=== PATIENT | female | born 1945 | race Caucasian/White ===

== ENCOUNTER → 2018-08-29 11:09 | Outpatient (CLI) | payer MEDICARE, SELFPAY ==
--- NOTE | 2018-08-29 11:14 | RAD_ITS ---
STUDY: X-RAY CHEST REASON FOR EXAM: Female, 72 years old. Cough TECHNIQUE: PA and lateral views of the chest. COMPARISON: None. FINDINGS: There is a patchy opacity in the right upper lobe and the superior aspect of the left lower lobe. There is no demonstrated pleural abnormality. Normal size heart. Normal mediastinum and tami. Normal visualized pulmonary arteries. There is atherosclerotic calcification of the aortic arch with tortuosity. There is a levoscoliosis of the thoracic spine. Normal visualized ribs, clavicles, and shoulders. There is no demonstrated abnormality of the visualized soft tissue structures of the upper abdomen. RAD/Chest PA and Lateral IMPRESSION: Findings are highly suspicious for bilateral pneumonia. N.B. : The above information has been verbally conveyed by Estrella Ordonez MD to Dr. Van MD, on 08/31/2018 17:06:40 (ET). Electronically Signed: Estrella Ordonez MD at 16:00 EST Tel , Service support ,
--- NOTE | 2018-08-29 11:15 | RAD_ITS ---
STUDY: X-RAY - UNILATERAL RIBS ( LEFT ) REASON FOR EXAM: Female, 72 years old. Left anterior rib pain TECHNIQUE: 4 view(s) of the ribs. COMPARISON: Chest x-ray performed concurrently, dictated separately FINDINGS: Normal visualized ribs without a demonstrated fracture. Lungs are described on chest x-ray report. RAD/Ribs Unil 2V No CXR IMPRESSION: 1. No rib fracture destructive bony process. Pulmonary findings described on chest x-ray report. Electronically Signed: Moisés Ballard MD at 13:09 EST , Service support ,
== END ==
PROVIDERS: Family Provider Nurse Practitioner; PCP Nurse Practitioner; Referring Provider Nurse Practitioner; Visit Provider Nurse Practitioner
DX: J06.9 Acute upper respiratory infection, unspecified (principal); R07.81 Pleurodynia
CPT/HCPCS: 71046; 71100

== ENCOUNTER → 2018-09-26 08:55 | Outpatient (CLI) | payer MEDICARE, SELFPAY ==
--- NOTE | 2018-09-26 08:58 | RAD_ITS ---
STUDY: X-RAY - RIGHT ANKLE REASON FOR EXAM: Female, 72 years old. Decreased mobility following intake of medication. TECHNIQUE: 3 view(s) of the ankle. COMPARISON: None. FINDINGS: Normal visualized distal tibia and fibula. Normal medial and lateral malleoli. Normal tibiotalar articulation and ankle mortise. Small spur at the insertion of the Achilles tendon. The visualized subtalar, talonavicular, calcaneocuboid and tarsal articulations are normal. The soft tissue structures are unremarkable. RAD/Ankle min 3 Views IMPRESSION: Normal x-ray examination of the ankle. Electronically Signed: Alfred Rocha MD at 9:26 EST , Service support ,
== END ==
PROVIDERS: Family Provider Nurse Practitioner; PCP Nurse Practitioner; Referring Provider Nurse Practitioner; Visit Provider Nurse Practitioner
DX: R29.898 Other symptoms and signs involving the musculoskeletal system (principal); R25.2 Cramp and spasm
CPT/HCPCS: 73610

== ENCOUNTER → 2018-09-26 10:01 | Outpatient (CLI) | payer MEDICARE, SELFPAY ==
--- NOTE | 2018-09-26 10:06 | VDLE_ITS ---
Reason For Study: LEG PAIN RIGHT LEFT GSV is normal. CFV is compressible, spontaneous, phasic, CFV is compressible, spontaneous, phasic, competent, and demonstrates normal competent and demonstrates normal augmentation. augmentation. FV is compressible, spontaneous, phasic, competent and demonstrates normal augmentation. POP V is compressible, spontaneous, phasic, competent and demonstrates normal augmentation. T/P Trunk is compressible. PTV is compressible. RT PerV is compressible. Procedure Exam performed in department. A preliminary report was called and/or faxed to Irasema Contreras. Interpretation Summary Deep veins of the right lower extremity are patent and compressible segmentally. There is no evidence of right lower extremity deep vein thrombosis. Valvular competence appears intact within the proximal deep venous system on the right . The right greater saphenous vein appears patent and compressible segmentally. Ordering Physician: Mile Contreras Referring Physician: Mile Contreras Performed By: Miguelina Krishnamurthy RVT
== END ==
PROVIDERS: Family Provider Nurse Practitioner; PCP Nurse Practitioner; Referring Provider Nurse Practitioner; Visit Provider Nurse Practitioner
DX: R29.898 Other symptoms and signs involving the musculoskeletal system (principal); R25.2 Cramp and spasm; M79.662 Pain in left lower leg; M79.661 Pain in right lower leg
CPT/HCPCS: 73610; 93971

== ENCOUNTER 2018-10-05 03:03 | Emergency (ER) | payer MEDICARE, SELFPAY ==
[2018-10-05 03:05] VITALS: BP 188/81; PULSE 83; RESP 18; TEMP 36.7; O2SAT 98; BMI 23.9
--- NOTE | 2018-10-05 03:11 | RAD_ITS ---
STUDY: X-RAY - LEFT FOOT CLINICAL: Female, 72 years old. Trauma TECHNIQUE: 3 view(s) of the foot. COMPARISON: None. FINDINGS: Normal talus, calcaneus, and tarsal bones. There is a posterior calcaneal spur. Normal visualized subtalar, talonavicular, calcaneocuboid, tarsal and tarsometatarsal articulations. Normal metatarsi. Normal metatarsophalangeal joint of the great toe. Normal tibial and fibular sesamoid bones. Normal interphalangeal joint of the great toe. Normal phalanges of the great toe. Normal second through fifth metatarsophalangeal joints. Normal interphalangeal joints and phalanges of the lesser toes. The soft tissue structures are unremarkable. RAD/Foot min 3 Views IMPRESSION: There is NO acute bony or soft tissue abnormality. Electronically Signed: Gee Marquez MD at 4:27 EST , Service support ,
--- NOTE | 2018-10-05 03:16 | ED.VISSUMM ---
- ER Visit Summary Date of Service: 10/05/18 Chief Complaint: Left foot pain History of Present Illness: The patient is a 72 F past medical history of diabetes, hypertension and high cholesterol. On no blood thinners. She accidentally injured the top of her left foot when she accidentally kicked wooden steps. No LOC. No other injuries. This occurred within the last several hours. No fall. Physical Examination: Well appearing elderly female. No acute distress. Vital signs are stable and afebrile. HEENT exam atraumatic. Neck nontender. Lungs clear to auscultation bilaterally. Heart regular rate and rhythm rate about 80. Chest wall nontender. Abdomen soft nontender. Normal bowel sounds. Pelvic girdle intact. Patient is moving all 4 extremities. Equal symmetrical service order expediter strength. Dorsi plantar flexion intact. No gross bony deformity. Top of her left foot over the metatarsal of the great toe she has tenderness and mild swelling. No gross bony deformity. Left foot is neurovascular intact with palpable DP pulse. She is able to wiggle all toes. Normal touch sensation. No laceration. Back normal. Neurologically she is awake and alert with no focal motor deficits. Test Results: Left foot x-ray 3 view shows no acute abnormalities. No fracture or dislocations. There is chronic degenerative changes. Emergency Department Course and Treatment: Repeat exam patient is doing well at 03 30 9 AM. We went over her x-rays. Treatment Plan: Ice and elevate. Tylenol and/or Motrin for pain. Follow-up if not improving. Disposition: Discharge Impression: Left foot contusion post trauma This note was generated with [employer] dictation software. It may contain incorrect words, spelling, and punctuation that were not noted in review of the chart prior to signing ED Disposition - Plan for ED Patient: Disposition: Home or Assisted Living Instructions: ED Contusion Foot Additional Instructions: Ice and elevate left foot. This should progressively get better. If in 1 week not not improving have your foot reevaluated. Your x-rays were negative tonight. No signs of a broken bone. Motrin and/or Tylenol for pain.
--- NOTE | 2018-10-05 03:20 | ED.DCSUM_ITS ---
- ER Visit Summary Date of Service: 10/05/18 Chief Complaint: Left foot pain History of Present Illness: The patient is a 72 F past medical history of diabetes, hypertension and high cholesterol. On no blood thinners. She accidentally injured the top of her left foot when she accidentally kicked wooden steps. No LOC. No other injuries. This occurred within the last several hours. No fall. Physical Examination: Well appearing elderly female. No acute distress. Vital signs are stable and afebrile. HEENT exam atraumatic. Neck nontender. Lungs clear to auscultation bilaterally. Heart regular rate and rhythm rate about 80. Chest wall nontender. Abdomen soft nontender. Normal bowel sounds. Pelvic girdle intact. Patient is moving all 4 extremities. Equal symmetrical final assembler boat strength. Dorsi plantar flexion intact. No gross bony deformity. Top of her left foot over the metatarsal of the great toe she has tenderness and mild swelling. No gross bony deformity. Left foot is neurovascular intact with palpable DP pulse. She is able to wiggle all toes. Normal touch sensation. No laceration. Back normal. Neurologically she is awake and alert with no focal motor deficits. Test Results: Left foot x-ray 3 view shows no acute abnormalities. No fracture or dislocations. There is chronic degenerative changes. Emergency Department Course and Treatment: Repeat exam patient is doing well at 03 30 9 AM. We went over her x-rays. Treatment Plan: Ice and elevate. Tylenol and/or Motrin for pain. Follow-up if not improving. Disposition: Discharge Impression: Left foot contusion post trauma This note was generated with [employer] dictation software. It may contain incorrect words, spelling, and punctuation that were not noted in review of the chart prior to signing ED Disposition - Plan for ED Patient: Disposition: Home or Assisted Living Instructions: ED Contusion Foot Additional Instructions: Ice and elevate left foot. This should progressively get better. If in 1 week not not improving have your foot reevaluated. Your x-rays were negative tonight. No signs of a broken bone. Motrin and/or Tylenol for pain.
--- NOTE | 2018-10-05 03:20 | ED.DEP ---
ED Disposition - Plan for ED Patient: Disposition: Home or Assisted Living Instructions: ED Contusion Foot Referrals: Luigi Davalos Chi, MD [Primary Care Provider] - As Needed Additional Instructions: Ice and elevate left foot. This should progressively get better. If in 1 week not not improving have your foot reevaluated. Your x-rays were negative tonight. No signs of a broken bone. Motrin and/or Tylenol for pain.
== END 2018-10-05 03:43 | disposition home or self-care (01) ==
PROVIDERS: Emergency Provider Emergency Medicine; Family Provider Family Medicine Geriatric Medicine; PCP Family Medicine Geriatric Medicine
DX: S90.32XA Contusion of left foot, initial encounter (principal); W22.8XXA Striking against or struck by other objects, initial encounter; Y93.9 Activity, unspecified; Y92.9 Unspecified place or not applicable; E11.9 Type 2 diabetes mellitus without complications; I10 Essential (primary) hypertension; E78.00 Pure hypercholesterolemia, unspecified; Z79.84 Long term (current) use of oral hypoglycemic drugs; Z79.899 Other long term (current) drug therapy
CPT/HCPCS: 73630; 99282

== ENCOUNTER 2018-10-20 15:30 | Outpatient (RCR) | payer MEDICARE, SELFPAY ==
--- NOTE | 2018-10-06 16:18 | HP.PTEVAL ---
Patient's Visit Information ROSARIO ALMODOVAR is a 72 year old F referred to Physical Therapy by Mile Contreras NP with a diagnosis of R foot drop. Date of Evaluation: 10/06/18 Physical Therapist: Rikki Vazquez, PT, ATC - Visit Plan Frequency: 1x/Week Duration: 2 Weeks Plan: Issue HEP of R ankle stretching, strengthening, balance and proprio. - Subjective Findings: Pt reports she had to take an antibiotic secondary to pneumonia 3 weeks ago. Pt reports both of her LE's went numb and she was unable to use them at all. Pt reports her motor function has improved in B LE's, but pt notes she has foot drop in R LE. This symptom is new since the meds. Pt reports she has difficulty with walking and negotiating stairs secondary to the weakness. Pt also notes she has to walk all day at work and notes her R LE just becomes weak the more she walks. No pain this date. No sleep difficulty secondary to R foot discomfort. - Objective Neuro: B LE sensation is WNL to light touch. B patellar tendon reflex= 2/3. ROM: L ankle DF= 0, PF= 55; R ankle DF= -32, PF= 45. MMT: R ankle DF= 1/5. All other B LE MMT= 5/5 throughout - Goals Goal 1:: I with HEP in 1-2 visits Goal Time Frame: 1 Week - Rehabilitation Potential Physical Therapy Diagnosis: R foot and ankle weakness secondary to an adverse reaction from taking and antibiotic Rehabilitation Potential: Good - Anticipated Interventions Patient/Client Instruction: Educate patient on: Condition, Plan of Care For the Purpose of:: To improve self management Therapeutic Exercise to Include: Strength training, Endurance training, Balance training, Flexibilty training, Gait and locomotor training, Active ROM For the Purpose of:: To increase ROM, To improve muscle performance and motor function Thank you for the opportunity to evaluate your patient. For Medicare and Medicare HMO plans, please review the plan of care and approve it. It will need to be FAXED BACK to us at [phone] for Medicare purposes. For Medicare only, by signing this I certify the plan of care. Please let me know if there are questions or concerns regarding this plan of care. Physician Signature: Date:
--- NOTE | 2019-03-19 12:01 | HP.PT.NRP ---
HP - Discharge Summary (1) - Patient Information ROSARIO ALMODOVAR was seen in my office for initial evaluation on 10/06/18. The following Plan of Care was established for this patient: Initial Frequency: 1x/Week Initial Duration: 2 Weeks - Anticipated Interventions Patient/Client Instruction: Educate patient on: Condition, Plan of Care For the Purpose of:: To improve self management Therapeutic Exercise to Include: Strength training, Endurance training, Balance training, Flexibilty training, Gait and locomotor training, Active ROM For the Purpose of:: To increase ROM, To improve muscle performance and motor function This patient was last seen in our office . Pertinent comments regarding their Physical therapy will appear below: Pt was treated for 1 followup PT visit for her R foot drop through the date of 10/20/18. Pt has not returned since that date, and is discontinued at this time. At this point I will be discontinuing this patient from physical therapy. I would be happy to see this patient again in the future if found appropriate by the physician. Thank you! Rikki Vazquez, PT, ATC
== END 2018-10-20 19:00 | disposition home or self-care (01) ==
LOC: PT 15:30
PROVIDERS: Family Provider Family Medicine Geriatric Medicine; PCP Family Medicine Geriatric Medicine; Referring Provider Nurse Practitioner; Visit Provider Nurse Practitioner
DX: M21.371 Foot drop, right foot (principal)
CPT/HCPCS: 97110; 97161

== ENCOUNTER → 2018-10-23 17:25 | Outpatient (CLI) | payer MEDICARE, SELFPAY ==
[2018-10-05 03:05] VITALS: BMI 23.9
[2018-10-23 18:06] LABS: Absolute Neutrophil Count 3.3 X10^3/uL (2.0-7.7); Basophil# 0.03 X10^3/uL; Basophil% 0.5 % (0-1); Eosinophil# 0.14 X10^3/uL; Eosinophils% 2.1 % (0-5); Hematocrit 38.4 % (37-47); Hemoglobin 12.8 g/dl (12.0-15.0); Lymphocyte % 42.1 % (19-41); Mean Corp Hgb Conc 33.3 g/gl (32-36); Mean Corpuscular Hgb 29.6 pg (27.0-32.0); Mean Corpuscular Volume 88.9 fL (81-99); Mean Platelet Vol. 10.1 fl (6.2-12.0); Monocyte# 0.37 X10^3/uL; Monocyte% 5.6 % (0-10); Neutrophil % 49.5 % (47-70); POSITIVE COUNT NO; POSITIVE DIFFERENTIAL NO; POSITIVE MORPHOLOGY NO; Platelet Count 270 K/mm3 (150-450); RBC Distribution Width CV 13.4 % (11.6-14.6); RBC Distribution Width SD 44.1 fl (35.1-43.9); Red Blood Count 4.32 M/mm3 (4.2-5.4); White Blood Count 6.7 K/mm3 (4.4-11.0)
[2018-10-23 18:37] LABS: ALB/GLOB Ratio 1.2 RATIO (0.9-2.4); AST(SGOT) 15 U/L (15-37); Alanine Aminotransfer ALT/SGPT 25 U/L (13-56); Albumin, Serum 3.7 g/dL (3.2-5.0); Alkaline Phosphatase 98 U/L (45-117); Anion Gap 10 (5-15); BUN 15 mg/dL (7-18); BUN/Creat Ratio 17.8 RATIO (10-20); Chloride 107 mmol/L (98-107); Cholesterol 233 mg/dL (200); Creatinine, Serum 0.84 mg/dL (0.55-1.02); EST Glomerular Filtration Rate 70 mL/min (>60); Est Glom Filt Rate - Afr Amer 85 mL/min (>60); Globulin 3.1 g/dL (2.2-4.2); Glucose 123 mg/dL (74-106); High Density Lipoprotein 75 mg/dL; Potassium 3.9 mmol/L (3.5-5.1); Protein, Total 6.8 g/dL (6.4-8.2); Sodium Level 143 mmol/L (136-145); Thyroid Stim Hormone (TSH) 3.92 uIU/mL (0.358-3.74); Triglycerides 189 mg/dL; Very Low Density Lipoprotein 38 mg/dL (5-40)
[2018-10-23 19:25] LABS: Vitamin D,25 Hydroxy 16.4 ng/mL (29.95-100.01)
== END ==
PROVIDERS: Family Provider Family Medicine Geriatric Medicine; PCP Family Medicine Geriatric Medicine; Referring Provider Family Medicine Geriatric Medicine; Visit Provider Family Medicine Geriatric Medicine
DX: E55.9 Vitamin D deficiency, unspecified (principal); E78.49 Other hyperlipidemia; R53.83 Other fatigue
CPT/HCPCS: 36415; 80053; 80061; 82306; 84443; 85025

== ENCOUNTER → 2019-02-09 | Outpatient (CLI) | payer MEDICARE, SELFPAY ==
[2019-02-09 17:32] LABS: Absolute Lymphocyte Count 1.75 X10^3/ul (0.83-4.51); Absolute Neutrophil Count 8.1 X10^3/uL (2.0-7.7); Basophil# 0.02 X10^3/uL; Basophil% 0.2 % (0-1); Eosinophil# 0.03 X10^3/uL; Eosinophils% 0.3 % (0-5); Hematocrit 39.7 % (37-47); Lymphocyte # 1.75 X10^3/ul (4.0); Lymphocyte % 16.8 % (19-41); Mean Corp Hgb Conc 32.7 g/gl (32-36); Mean Corpuscular Hgb 29.4 pg (27.0-32.0); Mean Corpuscular Volume 89.8 fL (81-99); Mean Platelet Vol. 10.9 fl (6.2-12.0); Monocyte# 0.44 X10^3/uL; Monocyte% 4.2 % (0-10); Neutrophil # 8.14 X10^3/uL (2.7-7.7); Neutrophil % 78.3 % (47-70); Platelet Count 334 K/mm3 (150-450); RBC Distribution Width CV 13.6 % (11.6-14.6); RBC Distribution Width SD 44.3 fl (35.1-43.9); Red Blood Count 4.42 M/mm3 (4.2-5.4); White Blood Count 10.4 K/mm3 (4.4-11.0)
[2019-02-09 17:35] LABS: POSITIVE COUNT NO; POSITIVE DIFFERENTIAL NO; POSITIVE MORPHOLOGY NO
[2019-02-09 17:53] LABS: ALB/GLOB Ratio 1.1 RATIO (0.9-2.4); AST(SGOT) 19 U/L (15-37); Alanine Aminotransfer ALT/SGPT 35 U/L (13-56); Albumin, Serum 3.7 g/dL (3.2-5.0); Alkaline Phosphatase 89 U/L (45-117); Anion Gap 10 (5-15); BUN 24 mg/dL (7-18); Chloride 105 mmol/L (98-107); EST Glomerular Filtration Rate 47 mL/min (>60); Est Glom Filt Rate - Afr Amer 56 mL/min (>60); Globulin 3.3 g/dL (2.2-4.2); Glucose 207 mg/dL (74-106); Potassium 3.8 mmol/L (3.5-5.1); Sodium Level 144 mmol/L (136-145); Thyroid Stim Hormone (TSH) 1.44 uIU/mL (0.358-3.74)
== END | disposition home or self-care (01) ==
PROVIDERS: Family Provider Family Medicine Geriatric Medicine; PCP Family Medicine Geriatric Medicine; Visit Provider Family Medicine Geriatric Medicine
DX: E11.65 Type 2 diabetes mellitus with hyperglycemia (principal); E55.9 Vitamin D deficiency, unspecified; I10 Essential (primary) hypertension
CPT/HCPCS: 36415; 80053; 82306; 84443; 85025

== ENCOUNTER → 2019-03-02 | Outpatient (CLI) | payer MEDICARE, SELFPAY ==
--- NOTE | 2019-03-02 17:16 | CT_ITS ---
STUDY: CT ABDOMEN AND PELVIS WITHOUT CONTRAST REASON FOR EXAM: Female, 73 years old. Right flank pain RADIATION DOSAGE (If Supplied By Facility): CTDIvol = ( 13.29 ) mGy, DLP = ( 628.86 ) mGycm TECHNIQUE: Transaxial images were obtained from the dome of the diaphragm to the symphysis pubis without oral contrast, and without intravenous contrast. Sagittal and coronal images were reconstructed. Individualized dose optimization techniques were used for this CT. COMPARISON: None. FINDINGS: The visualized lung bases are unremarkable. The visualized portions of the heart are within normal limits. Normal liver. There are likely multiple gallstones.. Normal spleen. Normal pancreas. Normal bilateral adrenal glands. Normal right kidney. Normal left kidney. No hydronephrosis or ureteral calculi. Normal visualized stomach. Normal small intestine. There is a moderate to large colonic fecal load. The appendix is not visualized. Normal abdominal aorta. Normal inferior vena cava. Normal retroperitoneum. Normal urinary bladder. Normal abdominal wall. Normal osseous structures. There is a small ventral periumbilical fatty hernia. There is calcification of the mitral annulus. There is likely a small hiatal hernia. CT/Abdomen/Pelvis without Cont IMPRESSION: Multiple likely gallstones, limited non-IV and nonoral contrast study, this should be correlated with clinical history and physical exam. If there is clinical concern for acute or chronic cholecystitis a right upper quadrant ultrasound would be recommended Moderate to large colonic fecal load likely fecal impaction Small ventral periumbilical fatty hernia No renal or ureteral calculi and no hydronephrosis Calcification of the mitral annulus Electronically Signed: Mitch Poe, at 18:21 EDT Tel , Service support ,
--- NOTE | 2019-03-02 17:17 | RAD_ITS ---
STUDY: X-RAY - THORACIC SPINE REASON FOR EXAM: Female, 73 years old. Back pain. TECHNIQUE: 3 view(s) of the thoracic spine were obtained. COMPARISON: None. FINDINGS: Normal kyphosis of the thoracic spine. There is no substantial scoliosis. Prominent anterior marginal spurs at T7-T8 and T9-T10 disc space levels. Normal vertebral bodies and endplates. Normal disc space heights. The soft tissue structures are unremarkable. RAD/Thoracic Spine 2 Views IMPRESSION: No acute fracture or acute osseous abnormality of the thoracic spine. Electronically Signed: Deondre Beckham MD at 8:59 EDT , Service support ,
--- NOTE | 2019-03-02 17:30 | RAD_ITS ---
STUDY: X-RAY - LUMBAR SPINE REASON FOR EXAM: Female, 73 years old. Back pain. TECHNIQUE: 3 view(s) of the lumbar spine were obtained. COMPARISON: None FINDINGS: Normal lumbar lordosis. There is no substantial scoliosis. There is a normal alignment of the vertebrae. Normal vertebral bodies and endplates. Normal disc space heights. Mild asymmetric degenerative facet arthropathy of the L3-L4 and L4-L5 facet joints. Partial sacralization of L5 accounts for the hypoplastic L5-S1 disc. Pseudoarticulation of the right L5 transverse process with the right upper sacral alar wing. Dense atherosclerotic calcifications along the abdominal aorta and the common iliac arteries. RAD/Lumbar Spine 2 or 3 Views IMPRESSION: 1. Partial sacralization of L5 with pseudoarthrosis of the right L5 transverse process with the right upper sacral alar wing. 2. No acute osseous abnormality of the lumbar spine. 3. Mild asymmetric degenerative facet arthropathy of the L3-L4 and L4-L5 facet joints. 4. Dense atherosclerotic calcifications along the abdominal aorta and common iliac arteries. Electronically Signed: Deondre Beckham MD at 9:03 EDT , Service support ,
== END | disposition home or self-care (01) ==
PROVIDERS: Family Provider Family Medicine Geriatric Medicine; PCP Family Medicine Geriatric Medicine; Referring Provider Family Medicine Geriatric Medicine; Visit Provider Family Medicine Geriatric Medicine
DX: M54.6 Pain in thoracic spine (principal); M54.16 Radiculopathy, lumbar region; R10.30 Lower abdominal pain, unspecified; N39.0 Urinary tract infection, site not specified
CPT/HCPCS: 72070; 72100; 74176; 87077; 87086; 87088; 87186

== ENCOUNTER → 2019-03-02 | Outpatient (CLI) | payer MEDICARE, SELFPAY | END | disposition home or self-care (01) | LOC: LABSPEC 17:13 | PROVIDERS: Family Provider Family Medicine Geriatric Medicine; PCP Family Medicine Geriatric Medicine; Visit Provider Family Medicine Geriatric Medicine | DX: N39.0 Urinary tract infection, site not specified (principal) | CPT/HCPCS: 87086 ==

== ENCOUNTER → 2019-03-04 | Outpatient (CLI) | payer MEDICARE, SELFPAY ==
--- NOTE | 2019-03-04 11:01 | US_ITS ---
STUDY: ABDOMINAL ULTRASOUND - RIGHT UPPER QUADRANT REASON FOR VISIT: Female, 73 [address] Pain. Abnormal [address] TECHNIQUE: Ultrasound evaluation of the right upper quadrant was performed with real-time and static degroot-scale imaging. TECHNICAL QUALITY: Adequate. COMPARISON: CT March 02, 2019 FINDINGS: Liver: The liver measures 16.7 cm. There is normal echogenicity of the liver. The bile ducts are within normal limits. There is hepatic color flow. The direction of portal flow is hepatopetal. There is no demonstrated mass lesion. Gallbladder: Normal distended gallbladder. The gallbladder wall measures 2 mm. There is a negative sonographic Levy's sign. There is no pericholecystic fluid. There are no shadowing gallstones. There is layering sludge. Common Bile Duct (C.B.D.): The common bile duct measures 4 mm. Pancreas: Normal size of the head, body and tail of the pancreas. There is normal echogenicity of the pancreas. There is no demonstrated pancreatic mass or cyst. Right Kidney: Normal size of the right kidney. The right kidney measures 10.4 cm. Normal renal cortex. The right cortex measures 1.5 cm. There is no demonstrated renal mass or cyst. There is no right hydronephrosis. US/Abdomen Limited IMPRESSION: No shadowing gallstones. Sludge in the gallbladder. No biliary dilatation. Electronically Signed: Joseph Graff MD at 19:31 EDT , Service support ,
== END | disposition home or self-care (01) ==
LOC: US 10:58
PROVIDERS: Family Provider Family Medicine Geriatric Medicine; PCP Family Medicine Geriatric Medicine; Referring Provider Family Medicine Geriatric Medicine; Visit Provider Family Medicine Geriatric Medicine
DX: R10.9 Unspecified abdominal pain (principal)
CPT/HCPCS: 76705

== ENCOUNTER → 2019-05-13 11:59 | Outpatient (CLI) | payer MEDICARE, SELFPAY ==
[2019-05-13 17:45] LABS: Absolute Lymphocyte Count 2.67 X10^3/uL (0.83-4.51); Absolute Neutrophil Count 5.1 X10^3/uL (2.0-7.7); Basophil# 0.05 X10^3/uL; Basophil% 0.6 % (0-1); Eosinophils% 2.3 % (0-5); Hematocrit 39.2 % (37-47); Hemoglobin 12.9 g/dL (12.0-15.0); Lymphocyte # 2.67 X10^3/ul (4.0); Lymphocyte % 31.2 % (19-41); Mean Corp Hgb Conc 32.9 g/dL (32-36); Mean Corpuscular Hgb 30.8 pg (27.0-32.0); Mean Corpuscular Volume 93.6 fL (81-99); Mean Platelet Vol. 10.6 fl (6.2-12.0); Monocyte% 5.8 % (0-10); NRBC Flagged by Analyzer 0 % (0-5); Neutrophil % 59.7 % (47-70); Platelet Count 306 K/mm3 (150-450); RBC Distribution Width CV 12.7 % (11.6-14.6); RBC Distribution Width SD 43.5 fl (35.1-43.9); Red Blood Count 4.19 M/mm3 (4.2-5.4); White Blood Count 8.6 K/mm3 (4.4-11.0)
[2019-05-13 18:08] LABS: Vitamin D,25 Hydroxy 31.5 ng/mL (29.95-100.01)
[2019-05-13 18:10] LABS: ALB/GLOB Ratio 1.3 RATIO (0.9-2.4); AST(SGOT) 22 U/L (15-37); Alanine Aminotransfer ALT/SGPT 29 U/L (13-56); Albumin, Serum 3.8 g/dL (3.2-5.0); Alkaline Phosphatase 83 U/L (45-117); Anion Gap 6 (5-15); BUN 21 mg/dL (7-18); BUN/Creat Ratio 22.2 RATIO (10-20); Chloride 108 mmol/L (98-107); Cholesterol 159 mg/dL (200); Creatinine, Serum 0.94 mg/dL (0.55-1.02); EST Glomerular Filtration Rate 61 mL/min (>60); Est Glom Filt Rate - Afr Amer 74 mL/min (>60); Glucose 99 mg/dL (74-106); High Density Lipoprotein 83 mg/dL; Potassium 3.7 mmol/L (3.5-5.1); Protein, Total 6.8 g/dL (6.4-8.2); Sodium Level 142 mmol/L (136-145); Thyroid Stim Hormone (TSH) 4.15 uIU/mL (0.358-3.74); Triglycerides 88 mg/dL; Very Low Density Lipoprotein 18 mg/dL (5-40)
== END ==
PROVIDERS: Family Provider Family Medicine Geriatric Medicine; PCP Family Medicine Geriatric Medicine; Visit Provider Family Medicine Geriatric Medicine
DX: E11.65 Type 2 diabetes mellitus with hyperglycemia (principal); E55.9 Vitamin D deficiency, unspecified; E78.5 Hyperlipidemia, unspecified; I10 Essential (primary) hypertension
CPT/HCPCS: 36415; 80053; 80061; 82306; 84443; 85025

== ENCOUNTER → 2019-07-01 11:39 | Outpatient (CLI) | payer MEDICARE, SELFPAY ==
[2019-07-01 14:08] LABS: Absolute Lymphocyte Count 1.47 X10^3/uL (0.83-4.51); Basophil# 0.06 X10^3/uL; Basophil% 0.8 % (0-1); Eosinophil# 0.17 X10^3/uL; Eosinophils% 2.4 % (0-5); Hematocrit 38.3 % (37-47); Hemoglobin 12.8 g/dL (12.0-15.0); Lymphocyte # 1.47 X10^3/ul (4.0); Lymphocyte % 20.7 % (19-41); Mean Corp Hgb Conc 33.4 g/dL (32-36); Mean Corpuscular Hgb 30.4 pg (27.0-32.0); Mean Platelet Vol. 10.9 fl (6.2-12.0); Monocyte# 0.39 X10^3/uL; Monocyte% 5.5 % (0-10); NRBC Flagged by Analyzer 0 % (0-5); Neutrophil # 4.99 X10^3/uL (2.7-7.7); Neutrophil % 70.5 % (47-70); Platelet Count 289 K/mm3 (150-450); RBC Distribution Width CV 13.2 % (11.6-14.6); Red Blood Count 4.21 M/mm3 (4.2-5.4); White Blood Count 7.1 K/mm3 (4.4-11.0)
[2019-07-01 14:26] LABS: ALB/GLOB Ratio 1.2 RATIO (0.9-2.4); AST(SGOT) 17 U/L (15-37); Alanine Aminotransfer ALT/SGPT 24 U/L (13-56); Albumin, Serum 3.8 g/dL (3.2-5.0); Alkaline Phosphatase 72 U/L (45-117); Anion Gap 10 (5-15); BUN 20 mg/dL (7-18); Calcium,Total 9.2 mg/dL (8.5-10.1); Chloride 108 mmol/L (98-107); Creatinine, Serum 0.91 mg/dL (0.55-1.02); EST Glomerular Filtration Rate 64 mL/min (>60); Est Glom Filt Rate - Afr Amer 77 mL/min (>60); Globulin 3.3 g/dL (2.2-4.2); Glucose 114 mg/dL (74-106); Protein, Total 7.1 g/dL (6.4-8.2); Rheumatoid Factor < 10.0 IU/mL (<15); Sodium Level 142 mmol/L (136-145)
[2019-07-02 11:40] LABS: Hepatitis B Surface Antibody Reactive; Hepatitis B Surface Antigen Non-Reactive (Nonreactive); Hepatitis C Antibody Non-Reactive (Nonreactive)
[2019-07-03 12:28] LABS: CCP IgG Antibodies 29 units (0-19); Hepatitis B Core AB IgM Negative (Negative)
== END ==
PROVIDERS: Family Provider Family Medicine Geriatric Medicine; PCP Family Medicine Geriatric Medicine; Referring Provider Internal Medicine Rheumatology; Visit Provider Internal Medicine Rheumatology
DX: M06.09 Rheumatoid arthritis without rheumatoid factor, multiple sites (principal); Z79.899 Other long term (current) drug therapy; M15.9 Polyosteoarthritis, unspecified; Q66.70 Congenital pes cavus, unspecified foot
CPT/HCPCS: 36415; 80053; 85025; 86200; 86431; 86705; 86706; 86803; 87340

== ENCOUNTER → 2019-08-11 16:12 | Outpatient (CLI) | payer MEDICARE, SELFPAY ==
[2019-08-11 17:19] LABS: Absolute Lymphocyte Count 1.39 X10^3/uL (0.83-4.51); Absolute Neutrophil Count 8.7 X10^3/uL (2.0-7.7); Basophil# 0.05 X10^3/uL; Basophil% 0.5 % (0-1); Eosinophil# 0.02 X10^3/uL; Eosinophils% 0.2 % (0-5); Hematocrit 39.9 % (37-47); Lymphocyte # 1.39 X10^3/ul (4.0); Lymphocyte % 13.3 % (19-41); Mean Corp Hgb Conc 32.6 g/dL (32-36); Mean Corpuscular Hgb 30.1 pg (27.0-32.0); Mean Corpuscular Volume 92.4 fL (81-99); Monocyte% 1.9 % (0-10); NRBC Flagged by Analyzer 0 % (0-5); Neutrophil # 8.73 X10^3/uL (2.7-7.7); Neutrophil % 83.7 % (47-70); Platelet Count 335 K/mm3 (150-450); RBC Distribution Width CV 13.2 % (11.6-14.6); RBC Distribution Width SD 44.9 fl (35.1-43.9); Red Blood Count 4.32 M/mm3 (4.2-5.4); White Blood Count 10.4 K/mm3 (4.4-11.0)
[2019-08-11 17:31] LABS: ALB/GLOB Ratio 1.2 RATIO (0.9-2.4); AST(SGOT) 18 U/L (15-37); Alanine Aminotransfer ALT/SGPT 23 U/L (13-56); Albumin, Serum 4.1 g/dL (3.2-5.0); Alkaline Phosphatase 89 U/L (45-117); Anion Gap 10 (5-15); BUN 19 mg/dL (7-18); BUN/Creat Ratio 17.1 RATIO (10-20); Calcium,Total 9.2 mg/dL (8.5-10.1); Chloride 107 mmol/L (98-107); Cholesterol 184 mg/dL (200); Creatinine, Serum 1.11 mg/dL (0.55-1.02); EST Glomerular Filtration Rate 51 mL/min (>60); Est Glom Filt Rate - Afr Amer 62 mL/min (>60); Globulin 3.3 g/dL (2.2-4.2); Glucose 147 mg/dL (74-106); High Density Lipoprotein 78 mg/dL; Protein, Total 7.4 g/dL (6.4-8.2); Sodium Level 141 mmol/L (136-145); Thyroid Stim Hormone (TSH) 1.98 uIU/mL (0.358-3.74); Triglycerides 146 mg/dL; Very Low Density Lipoprotein 29 mg/dL (5-40); Vitamin D,25 Hydroxy 28.7 ng/mL (29.95-100.01)
== END ==
PROVIDERS: Family Provider Family Medicine Geriatric Medicine; PCP Family Medicine Geriatric Medicine; Visit Provider Family Medicine Geriatric Medicine
DX: E11.65 Type 2 diabetes mellitus with hyperglycemia (principal); E55.9 Vitamin D deficiency, unspecified; E78.5 Hyperlipidemia, unspecified; I10 Essential (primary) hypertension
CPT/HCPCS: 36415; 80053; 80061; 82306; 84443; 85025

== ENCOUNTER → 2019-08-31 15:56 | Outpatient (CLI) | payer MEDICARE, SELFPAY ==
[2019-08-31 18:03] LABS: Absolute Neutrophil Count 6.2 X10^3/uL (2.0-7.7); Basophil# 0.03 X10^3/uL; Basophil% 0.3 % (0-1); Eosinophil# 0.14 X10^3/uL; Eosinophils% 1.6 % (0-5); Hemoglobin 11.9 g/dL (12.0-15.0); Lymphocyte % 21.3 % (19-41); Mean Corp Hgb Conc 33.1 g/dL (32-36); Mean Corpuscular Hgb 30.8 pg (27.0-32.0); Mean Corpuscular Volume 93.3 fL (81-99); Mean Platelet Vol. 10.7 fl (6.2-12.0); Monocyte# 0.63 X10^3/uL; NRBC Flagged by Analyzer 0 % (0-5); Neutrophil # 6.22 X10^3/uL (2.7-7.7); Neutrophil % 69.6 % (47-70); Platelet Count 293 K/mm3 (150-450); RBC Distribution Width CV 14.5 % (11.6-14.6); RBC Distribution Width SD 49.1 fl (35.1-43.9); Red Blood Count 3.86 M/mm3 (4.2-5.4); White Blood Count 8.9 K/mm3 (4.4-11.0)
[2019-08-31 18:06] LABS: ALB/GLOB Ratio 1.3 RATIO (0.9-2.4); AST(SGOT) 13 U/L (15-37); Alanine Aminotransfer ALT/SGPT 25 U/L (13-56); Albumin, Serum 3.9 g/dL (3.2-5.0); Alkaline Phosphatase 84 U/L (45-117); Anion Gap 7 (5-15); BUN 23 mg/dL (7-18); BUN/Creat Ratio 22.1 RATIO (10-20); Calcium,Total 9.5 mg/dL (8.5-10.1); Chloride 110 mmol/L (98-107); Creatinine, Serum 1.04 mg/dL (0.55-1.02); EST Glomerular Filtration Rate 55 mL/min (>60); Est Glom Filt Rate - Afr Amer 66 mL/min (>60); Globulin 3.1 g/dL (2.2-4.2); Glucose 65 mg/dL (74-106); Potassium 3.8 mmol/L (3.5-5.1); Sodium Level 144 mmol/L (136-145)
== END ==
PROVIDERS: Family Provider Family Medicine Geriatric Medicine; PCP Family Medicine Geriatric Medicine; Referring Provider Internal Medicine Rheumatology; Visit Provider Internal Medicine Rheumatology
DX: M06.09 Rheumatoid arthritis without rheumatoid factor, multiple sites (principal); Z79.899 Other long term (current) drug therapy; M15.9 Polyosteoarthritis, unspecified; Q66.70 Congenital pes cavus, unspecified foot; E11.9 Type 2 diabetes mellitus without complications; I10 Essential (primary) hypertension; E78.5 Hyperlipidemia, unspecified; I35.9 Nonrheumatic aortic valve disorder, unspecified; N39.46 Mixed incontinence; N30.10 Interstitial cystitis (chronic) without hematuria; F32.89 Other specified depressive episodes
CPT/HCPCS: 36415; 80053; 85025

== ENCOUNTER → 2019-10-26 16:25 | Outpatient (CLI) | payer MEDICARE, SELFPAY ==
[2019-10-26 17:42] LABS: Absolute Lymphocyte Count 1.18 X10^3/uL (0.83-4.51); Absolute Neutrophil Count 8.6 X10^3/uL (2.0-7.7); Basophil# 0.03 X10^3/uL; Basophil% 0.3 % (0-1); Eosinophil# 0.03 X10^3/uL; Eosinophils% 0.3 % (0-5); Hematocrit 36.1 % (37-47); Hemoglobin 11.6 g/dL (12.0-15.0); Lymphocyte # 1.18 X10^3/ul (4.0); Lymphocyte % 11.4 % (19-41); Mean Corp Hgb Conc 32.1 g/dL (32-36); Mean Corpuscular Hgb 30.4 pg (27.0-32.0); Mean Corpuscular Volume 94.8 fL (81-99); Mean Platelet Vol. 10.5 fl (6.2-12.0); Monocyte# 0.47 X10^3/uL; Monocyte% 4.6 % (0-10); NRBC Flagged by Analyzer 0 % (0-5); Neutrophil # 8.55 X10^3/uL (2.7-7.7); Neutrophil % 82.9 % (47-70); Platelet Count 339 K/mm3 (150-450); RBC Distribution Width CV 14.8 % (11.6-14.6); RBC Distribution Width SD 51.8 fl (35.1-43.9); Red Blood Count 3.81 M/mm3 (4.2-5.4); White Blood Count 10.3 K/mm3 (4.4-11.0)
[2019-10-26 18:16] LABS: ALB/GLOB Ratio 1.1 RATIO (0.9-2.4); AST(SGOT) 16 U/L (15-37); Alanine Aminotransfer ALT/SGPT 27 U/L (13-56); Albumin, Serum 3.6 g/dL (3.2-5.0); Alkaline Phosphatase 75 U/L (45-117); Anion Gap 6 (5-15); BUN 20 mg/dL (7-18); BUN/Creat Ratio 21.3 RATIO (10-20); CPK Total, Creatine Kinase 162 U/L (26-192); Calcium,Total 9.4 mg/dL (8.5-10.1); Chloride 108 mmol/L (98-107); Creatinine, Serum 0.94 mg/dL (0.55-1.02); EST Glomerular Filtration Rate 62 mL/min (>60); Est Glom Filt Rate - Afr Amer 75 mL/min (>60); Globulin 3.3 g/dL (2.2-4.2); Glucose 73 mg/dL (74-106); Potassium 3.6 mmol/L (3.5-5.1); Protein, Total 6.9 g/dL (6.4-8.2); Sodium Level 142 mmol/L (136-145); Thyroid Stim Hormone (TSH) 1.79 uIU/mL (0.358-3.74)
[2019-10-27 09:13] LABS: Vitamin D,25 Hydroxy 33.7 ng/mL
[2019-10-28 11:33] LABS: Myoglobin, Serum 54 ng/mL (25-58)
== END ==
PROVIDERS: PCP Family Medicine Geriatric Medicine; Visit Provider Family Medicine Geriatric Medicine
DX: R07.9 Chest pain, unspecified (principal); E11.65 Type 2 diabetes mellitus with hyperglycemia; E55.9 Vitamin D deficiency, unspecified; E78.5 Hyperlipidemia, unspecified
CPT/HCPCS: 36415; 80053; 82306; 82550; 83874; 84443; 84484; 85025

== ENCOUNTER → 2019-10-27 16:57 | Outpatient (CLI) | payer MEDICARE, SELFPAY ==
[2019-10-27 18:03] LABS: CPK Total, Creatine Kinase 171 U/L (26-192)
[2019-10-29 07:55] LABS: Myoglobin, Serum 59 ng/mL (25-58)
== END ==
PROVIDERS: PCP Family Medicine Geriatric Medicine; Visit Provider Family Medicine Geriatric Medicine
DX: R07.9 Chest pain, unspecified (principal)
CPT/HCPCS: 36415; 82550; 83874; 84484

== ENCOUNTER → 2019-11-19 15:47 | Outpatient (CLI) | payer MEDICARE, SELFPAY ==
[2019-11-18 15:06] VITALS: BMI 28.6
[2019-11-19 17:39] LABS: Absolute Lymphocyte Count 2.45 X10^3/uL (0.83-4.51); Absolute Neutrophil Count 4.3 X10^3/uL (2.0-7.7); Basophil# 0.04 X10^3/uL; Basophil% 0.5 % (0-1); Eosinophil# 0.18 X10^3/uL; Eosinophils% 2.4 % (0-5); Hematocrit 35.2 % (37-47); Hemoglobin 11.2 g/dL (12.0-15.0); Lymphocyte # 2.45 X10^3/ul (4.0); Lymphocyte % 32.8 % (19-41); Mean Corp Hgb Conc 31.8 g/dL (32-36); Mean Corpuscular Hgb 30.7 pg (27.0-32.0); Mean Corpuscular Volume 96.4 fL (81-99); Mean Platelet Vol. 10.6 fl (6.2-12.0); Monocyte# 0.53 X10^3/uL; Monocyte% 7.1 % (0-10); NRBC Flagged by Analyzer 0 % (0-5); Neutrophil # 4.25 X10^3/uL (2.7-7.7); Neutrophil % 56.8 % (47-70); Platelet Count 292 K/mm3 (150-450); RBC Distribution Width CV 14.3 % (11.6-14.6); RBC Distribution Width SD 49.8 fl (35.1-43.9); Red Blood Count 3.65 M/mm3 (4.2-5.4); White Blood Count 7.5 K/mm3 (4.4-11.0)
[2019-11-19 17:47] LABS: ALB/GLOB Ratio 1.2 RATIO (0.9-2.4); AST(SGOT) 11 U/L (15-37); Alanine Aminotransfer ALT/SGPT 21 U/L (13-56); Albumin, Serum 3.6 g/dL (3.2-5.0); Alkaline Phosphatase 74 U/L (45-117); Anion Gap 6 (5-15); BUN 18 mg/dL (7-18); BUN/Creat Ratio 17.5 RATIO (10-20); Calcium,Total 8.9 mg/dL (8.5-10.1); Chloride 104 mmol/L (98-107); Creatinine, Serum 1.03 mg/dL (0.55-1.02); EST Glomerular Filtration Rate 55 mL/min (>60); Est Glom Filt Rate - Afr Amer 67 mL/min (>60); Globulin 3.1 g/dL (2.2-4.2); Glucose 101 mg/dL (74-106); Potassium 4.1 mmol/L (3.5-5.1); Protein, Total 6.7 g/dL (6.4-8.2); Sodium Level 137 mmol/L (136-145)
== END ==
PROVIDERS: PCP Family Medicine Geriatric Medicine; Referring Provider Internal Medicine Rheumatology; Visit Provider Internal Medicine Rheumatology
DX: M06.09 Rheumatoid arthritis without rheumatoid factor, multiple sites (principal); Z79.899 Other long term (current) drug therapy; M15.9 Polyosteoarthritis, unspecified; Q66.70 Congenital pes cavus, unspecified foot; E11.9 Type 2 diabetes mellitus without complications; I10 Essential (primary) hypertension; E78.5 Hyperlipidemia, unspecified; I35.9 Nonrheumatic aortic valve disorder, unspecified; N39.46 Mixed incontinence; N30.10 Interstitial cystitis (chronic) without hematuria
CPT/HCPCS: 36415; 80053; 85025

== ENCOUNTER → 2020-01-26 16:07 | Outpatient (CLI) | payer MEDICARE, SELFPAY ==
[2019-11-18 15:06] VITALS: BMI 28.6
[2020-01-26 17:14] LABS: Absolute Lymphocyte Count 1.92 X10^3/uL (0.83-4.51); Absolute Neutrophil Count 3.5 X10^3/uL (2.0-7.7); Basophil# 0.05 X10^3/uL; Basophil% 0.8 % (0-1); Eosinophil# 0.17 X10^3/uL; Eosinophils% 2.8 % (0-5); Hematocrit 35.3 % (37-47); Hemoglobin 11.3 g/dL (12.0-15.0); Lymphocyte # 1.92 X10^3/ul (4.0); Lymphocyte % 32.1 % (19-41); Mean Corpuscular Hgb 30.2 pg (27.0-32.0); Mean Corpuscular Volume 94.4 fL (81-99); Mean Platelet Vol. 10.4 fl (6.2-12.0); Monocyte# 0.32 X10^3/uL; Monocyte% 5.4 % (0-10); NRBC Flagged by Analyzer 0 % (0-5); Neutrophil # 3.51 X10^3/uL (2.7-7.7); Neutrophil % 58.7 % (47-70); Platelet Count 337 K/mm3 (150-450); RBC Distribution Width CV 14.2 % (11.6-14.6); RBC Distribution Width SD 48.7 fl (35.1-43.9); Red Blood Count 3.74 M/mm3 (4.2-5.4)
[2020-01-26 17:57] LABS: Vitamin D,25 Hydroxy 36.4 ng/mL
[2020-01-26 18:04] LABS: ALB/GLOB Ratio 1.3 RATIO (0.9-2.4); AST(SGOT) 35 U/L (15-37); Alanine Aminotransfer ALT/SGPT 33 U/L (13-56); Albumin, Serum 3.9 g/dL (3.2-5.0); Alkaline Phosphatase 81 U/L (45-117); Anion Gap 6 (5-15); BUN 20 mg/dL (7-18); BUN/Creat Ratio 21.3 RATIO (10-20); Calcium,Total 9.3 mg/dL (8.5-10.1); Chloride 107 mmol/L (98-107); Creatinine, Serum 0.94 mg/dL (0.55-1.02); EST Glomerular Filtration Rate 62 mL/min (>60); Est Glom Filt Rate - Afr Amer 75 mL/min (>60); Glucose 86 mg/dL (74-106); Potassium 3.8 mmol/L (3.5-5.1); Protein, Total 6.9 g/dL (6.4-8.2); Sodium Level 142 mmol/L (136-145)
== END ==
PROVIDERS: PCP Family Medicine Geriatric Medicine; Visit Provider Family Medicine Geriatric Medicine
DX: E11.65 Type 2 diabetes mellitus with hyperglycemia (principal); E55.9 Vitamin D deficiency, unspecified; I10 Essential (primary) hypertension
CPT/HCPCS: 36415; 80053; 82306; 84443; 85025

== ENCOUNTER → 2020-03-01 12:38 | Outpatient (CLI) | payer MEDICARE, SELFPAY ==
[2019-11-18 15:06] VITALS: BMI 28.6
[2020-03-01 15:39] LABS: Absolute Lymphocyte Count 0.67 X10^3/uL (0.83-4.51); Absolute Neutrophil Count 8.4 X10^3/uL (2.0-7.7); Basophil# 0.06 X10^3/uL; Basophil% 0.6 % (0-1); Eosinophil# 0.02 X10^3/uL; Eosinophils% 0.2 % (0-5); Hematocrit 37.6 % (37-47); Hemoglobin 11.8 g/dL (12.0-15.0); Lymphocyte # 0.67 X10^3/ul (4.0); Lymphocyte % 7.2 % (19-41); Mean Corp Hgb Conc 31.4 g/dL (32-36); Mean Corpuscular Hgb 30.4 pg (27.0-32.0); Mean Corpuscular Volume 96.9 fL (81-99); Mean Platelet Vol. 10.8 fl (6.2-12.0); Monocyte# 0.11 X10^3/uL; Monocyte% 1.2 % (0-10); NRBC Flagged by Analyzer 0 % (0-5); Neutrophil # 8.36 X10^3/uL (2.7-7.7); Neutrophil % 90.5 % (47-70); Platelet Count 304 K/mm3 (150-450); RBC Distribution Width CV 14.7 % (11.6-14.6); RBC Distribution Width SD 50.5 fl (35.1-43.9); Red Blood Count 3.88 M/mm3 (4.2-5.4); White Blood Count 9.3 K/mm3 (4.4-11.0)
[2020-03-01 16:14] LABS: ALB/GLOB Ratio 1.2 RATIO (0.9-2.4); AST(SGOT) 25 U/L (15-37); Alanine Aminotransfer ALT/SGPT 35 U/L (13-56); Albumin, Serum 3.8 g/dL (3.2-5.0); Alkaline Phosphatase 79 U/L (45-117); Anion Gap 9 (5-15); BUN 22 mg/dL (7-18); BUN/Creat Ratio 20.2 RATIO (10-20); Calcium,Total 9.2 mg/dL (8.5-10.1); Chloride 104 mmol/L (98-107); Creatinine, Serum 1.09 mg/dL (0.55-1.02); EST Glomerular Filtration Rate 52 mL/min (>60); Est Glom Filt Rate - Afr Amer 63 mL/min (>60); Globulin 3.1 g/dL (2.2-4.2); Glucose 266 mg/dL (74-106); Potassium 4.5 mmol/L (3.5-5.1); Protein, Total 6.9 g/dL (6.4-8.2); Sodium Level 139 mmol/L (136-145)
== END ==
PROVIDERS: PCP Family Medicine Geriatric Medicine; Referring Provider Internal Medicine Rheumatology; Visit Provider Internal Medicine Rheumatology
DX: M06.09 Rheumatoid arthritis without rheumatoid factor, multiple sites (principal); Z79.899 Other long term (current) drug therapy; M15.9 Polyosteoarthritis, unspecified; Q66.70 Congenital pes cavus, unspecified foot; E11.9 Type 2 diabetes mellitus without complications; I10 Essential (primary) hypertension; E78.5 Hyperlipidemia, unspecified
CPT/HCPCS: 36415; 80053; 85025

== ENCOUNTER → 2020-03-14 17:04 | Outpatient (CLI) | payer MEDICARE, SELFPAY ==
[2019-11-18 15:06] VITALS: BMI 28.6
--- NOTE | 2020-03-14 17:35 | RAD_ITS ---
STUDY: X-RAY - PELVIS AND RIGHT HIP REASON FOR EXAM: Right hip pain, fall yesterday. TECHNIQUE: 2 views of the pelvis and hip. COMPARISON: None. FINDINGS: There is vascular calcification. Normal bilateral iliac wings, sacroiliac joints and visualized sacrum. Normal bilateral superior and inferior pubic rami. There are anchors in the parasymphyseal bones. Normal bilateral ischial tuberosities. Normal visualized femoral head. Normal acetabulum. Normal hip joint. RAD/HIP, UNI W/ Pelvis 2-3 Views IMPRESSION: Vascular calcification. Anchors in the parasymphyseal bones. Otherwise, unremarkable x-ray examination of the pelvis and right hip. Electronically Signed: Tony Tariq MD at 11:44 EDT Tel , Service support ,
--- NOTE | 2020-03-14 17:35 | RAD_ITS ---
STUDY: X-RAY - RIGHT KNEE REASON FOR EXAM: Right knee pain, fall yesterday. TECHNIQUE: 4 view(s) of the knee. COMPARISON: None. FINDINGS: Normal visualized distal femur. Normal visualized proximal tibia and fibula. Normal proximal tibiofibular articulation. Normal medial femorotibial compartment. Normal lateral femorotibial compartment. Normal patellofemoral articulation. There is vascular calcification. RAD/Knee 4 or More Views IMPRESSION: Vascular calcification. Otherwise, unremarkable x-ray examination of the right knee. Electronically Signed: Tony Tariq MD at 11:36 EDT Tel , Service support ,
--- NOTE | 2020-03-14 17:45 | RAD_ITS ---
STUDY: X-RAY - LEFT KNEE REASON FOR EXAM: Left knee pain, fall yesterday. TECHNIQUE: 4 view(s) of the knee. COMPARISON: None. FINDINGS: Normal visualized distal femur. Normal visualized proximal tibia and fibula. Normal proximal tibiofibular articulation. Normal medial femorotibial compartment. Normal lateral femorotibial compartment. Normal patellofemoral articulation. There is vascular calcification. RAD/Knee 4 or More Views IMPRESSION: Vascular calcification. Otherwise, unremarkable x-ray examination of the left knee. Electronically Signed: Tony Tariq MD at 11:47 EDT Tel , Service support ,
[2020-03-14 18:01] LABS: Absolute Neutrophil Count 5.8 X10^3/uL (2.0-7.7); Basophil# 0.05 X10^3/uL; Basophil% 0.6 % (0-1); Eosinophil# 0.14 X10^3/uL; Eosinophils% 1.7 % (0-5); Hematocrit 37.1 % (37-47); Hemoglobin 11.8 g/dL (12.0-15.0); Lymphocyte % 19.6 % (19-41); Mean Corp Hgb Conc 31.8 g/dL (32-36); Mean Corpuscular Hgb 30.8 pg (27.0-32.0); Mean Corpuscular Volume 96.9 fL (81-99); Mean Platelet Vol. 10.4 fl (6.2-12.0); Monocyte# 0.61 X10^3/uL; Monocyte% 7.5 % (0-10); NRBC Flagged by Analyzer 0 % (0-5); Neutrophil # 5.76 X10^3/uL (2.7-7.7); Neutrophil % 70.4 % (47-70); Platelet Count 321 K/mm3 (150-450); RBC Distribution Width CV 14.9 % (11.6-14.6); RBC Distribution Width SD 52.5 fl (35.1-43.9); Red Blood Count 3.83 M/mm3 (4.2-5.4); White Blood Count 8.2 K/mm3 (4.4-11.0)
[2020-03-14 18:45] LABS: ALB/GLOB Ratio 1.1 RATIO (0.9-2.4); AST(SGOT) 21 U/L (15-37); Alanine Aminotransfer ALT/SGPT 27 U/L (13-56); Albumin, Serum 3.4 g/dL (3.2-5.0); Alkaline Phosphatase 75 U/L (45-117); Anion Gap 5 (5-15); BUN 15 mg/dL (7-18); BUN/Creat Ratio 16.8 RATIO (10-20); Calcium,Total 8.7 mg/dL (8.5-10.1); Chloride 109 mmol/L (98-107); Creatinine, Serum 0.89 mg/dL (0.55-1.02); EST Glomerular Filtration Rate 65 mL/min (>60); Est Glom Filt Rate - Afr Amer 79 mL/min (>60); Globulin 3.1 g/dL (2.2-4.2); Glucose 126 mg/dL (74-106); Potassium 3.8 mmol/L (3.5-5.1); Protein, Total 6.5 g/dL (6.4-8.2); Sodium Level 143 mmol/L (136-145)
== END ==
PROVIDERS: PCP Family Medicine Geriatric Medicine; Referring Provider Family Medicine Geriatric Medicine; Visit Provider Family Medicine Geriatric Medicine
DX: M25.561 Pain in right knee (principal); M25.562 Pain in left knee; M25.551 Pain in right hip; N39.0 Urinary tract infection, site not specified; R55 Syncope and collapse; I10 Essential (primary) hypertension
CPT/HCPCS: 36415; 73502; 73564; 80053; 85025; 87086; 87088

== ENCOUNTER → 2020-03-23 06:19 | Outpatient (CLI) | payer MEDICARE, SELFPAY ==
[2019-11-18 15:06] VITALS: BMI 28.6
--- NOTE | 2020-03-23 06:21 | ECHOCS_ITS ---
Reason For Study: Murmur Procedure This was a 2D Doppler, Color Flow transthoracic echocardiogram. The study was technically difficult. Contrast injection was performed. Exam performed in department. Left Ventricle Normal LV size. Moderate concentric left ventricular hypertrophy. Left ventricular systolic function is normal. The estimated ejection fraction is 65 %. Stage 2 diastolic dysfunction. No regional wall motion abnormalities noted. Right Ventricle Normal RV size. Normal systolic function. Atria The left atrium is moderately enlarged. Normal right atrium. Mitral Valve There is moderate mitral annular calcification. Mild (1+) eccentric mitral valve insufficiency. Tricuspid Valve Normal tricuspid valve. Unable to estimate RV systolic pressure due to insufficient tricuspid regurgitant envelope. Aortic Valve Trisinus/trileaflet aortic valve. Moderate focal aortic valve calcification. Peak aortic valve gradient 49 mmHg. Mean aortic valve gradient 30 mmHg. Calculated aortic valve area (continuity equation) is 0.8-1cm^ cm2. Moderate aortic stenosis. Pulmonic Valve Normal pulmonic valve. Great Vessels Normal aortic root. The pulmonary artery is normal size. Normal inferior vena cava. Pericardium/Pleural No pericardial effusion. Medication 22 gauge I.V. with prn adaptor inserted into left arm. Diluted definity 2.5ml given slow IV push to enhance endocardial definition. MMode/2D Measurements & Calculations LVIDd: 3.8 cm IVSd: 1.4 cm LVOT diam: 1.9 cm LVIDs: 2.1 cm LVPWd: 1.6 cm FS: 44.4 % LVOT area: 2.8 cm2 Ao root diam: 2.7 cm LAV(MOD-bp): 103.8 ml Aortic Valve Planimetry: 0.72 cm2 LA dimension: 3.5 cm LAV(MOD-bp) Indexed: 56.2 ml/m2 LAV(MOD-sp2): 116.8 ml LAV(MOD-sp4): 91.2 ml LA A4 area: 26.4 cm2 RA A4 area: 12.5 cm2 Time Measurements MV dec time: 0.31 sec Doppler Measurements & Calculations MV E max lit: 166.3 cm/sec Lat Peak E' Lit: 6.5 cm/sec Med Peak E' Lit: 3.7 cm/sec MV A max lit: 183.4 cm/sec E/E' lat: 25.5 E/E' med: 45.2 MV E/A: 0.91 MV V2 max: 195.5 cm/sec MV P1/2t max lit: 175.3 cm/sec Ao V2 max: 351.7 cm/sec MV max P.3 mmHg MV P1/2t: 86.4 msec Ao max P.5 mmHg MV V2 mean: 117.0 cm/sec MV dec slope: 593.9 cm/sec2 Ao V2 mean: 255.5 cm/sec MV mean P.4 mmHg Ao mean P.7 mmHg MV V2 VTI: 56.1 cm MVA(P1/2t): 2.5 cm2 Ao V2 VTI: 83.4 cm MVA(VTI): 1.4 cm2 NARINDER(I,D): 0.94 cm2 NARINDER(V,D): 0.88 cm2 LV V1 max: 109.3 cm/sec SV(LVOT): 78.8 ml PA V2 max: 144.5 cm/sec LV V1 max P.8 mmHg LV V1 mean P.6 mmHg LV V1 mean: 75.3 cm/sec LV V1 VTI: 27.7 cm Interpretation Summary Normal LV size. Moderate concentric left ventricular hypertrophy. Mean aortic valve gradient 30 mmHg. Calculated aortic valve area (continuity equation) is 0.8-1cm^ cm2. Moderate aortic stenosis. The estimated ejection fraction is 65 %. Left ventricular systolic function is normal. Stage 2 diastolic dysfunction. Contrast injection was performed. Ordering Physician: Santos Caldwell Referring Physician: Santos Caldwell Performed By: Shant De La Rosa RCS
--- NOTE | 2020-03-23 13:51 | STRESSREP ---
Stress Test Report Pharmacologic myocardial perfusion stress test. 73-year-old woman with a history of abnormal EKG. Resting EKG demonstrates normal sinus rhythm with T wave inversions noted in lead I and aVL. 0.4 mg of regadenoson was infused per usual protocol followed Intravenous saline flush injection continuous EKG monitoring was performed. The patient maintained sinus rhythm throughout the recording. The maximum heart rate attained was 101 bpm which was 70% of maximal predicted heart rate the maximum workload was 1 metabolic equivalent. At rest the T wave inversions were noted in laterally at peak infusion similar changes were noted. An incomplete left bundle branch block was present. The peak blood pressure was 146/70 mmHg. Myocardial perfusion protocol. 13.9 mCi of technetium 99m sestamibi was injected at rest. 0.4 mg of regadenoson was infused per usual protocol. At peak infusion 43.2 mCi of technetium 99m sestamibi was injected stress images were obtained stress and rest images were reconstructed and compared in the short axis vertical long horizontal long axis. Gated images were also obtained per Perfusion SPECT analysis: Review of the stress images demonstrate normal uptake of tracer noted in all areas of the myocardium the resting images similar demonstrate normal uptake of tracer noted in all areas of the myocardium. No areas of reversibility are noted suggest ischemia no previous infarct is noted. Gated SPECT analysis: The gated ejection fraction is noted to be 40%. Conclusion: Normal pharmacologic myocardial perfusion stress test. Reduced ejection fraction.
== END ==
PROVIDERS: PCP Family Medicine Geriatric Medicine; Referring Provider Internal Medicine Cardiovascular Disease; Visit Provider Internal Medicine Cardiovascular Disease
DX: R55 Syncope and collapse (principal); R94.31 Abnormal electrocardiogram [ECG] [EKG]; R01.1 Cardiac murmur, unspecified
CPT/HCPCS: 78452; 93017; 93306; A9500; Q9957; A4216; C8929; J2785

== ENCOUNTER → 2020-03-30 09:03 | Outpatient (CLI) | payer MEDICARE, SELFPAY ==
[2019-11-18 15:06] VITALS: BMI 28.6
== END ==
PROVIDERS: PCP Family Medicine Geriatric Medicine; Referring Provider Internal Medicine Cardiovascular Disease; Visit Provider Internal Medicine Cardiovascular Disease
DX: R55 Syncope and collapse (principal); R94.31 Abnormal electrocardiogram [ECG] [EKG]; E11.9 Type 2 diabetes mellitus without complications; E78.00 Pure hypercholesterolemia, unspecified
CPT/HCPCS: 93225; 93226

== ENCOUNTER → 2020-04-26 16:11 | Outpatient (CLI) | payer MEDICARE, SELFPAY ==
[2019-11-18 15:06] VITALS: BMI 28.6
[2020-04-26 17:23] LABS: Vitamin D,25 Hydroxy 36.1 ng/mL
[2020-04-26 17:31] LABS: ALB/GLOB Ratio 1.5 RATIO (0.9-2.4); AST(SGOT) 24 U/L (15-37); Alanine Aminotransfer ALT/SGPT 31 U/L (13-56); Albumin, Serum 3.8 g/dL (3.2-5.0); Alkaline Phosphatase 78 U/L (45-117); Anion Gap 9 (5-15); BUN 16 mg/dL (7-18); BUN/Creat Ratio 16.1 RATIO (10-20); Calcium,Total 8.9 mg/dL (8.5-10.1); Chloride 106 mmol/L (98-107); Creatinine, Serum 0.99 mg/dL (0.55-1.02); EST Glomerular Filtration Rate 58 mL/min (>60); Est Glom Filt Rate - Afr Amer 70 mL/min (>60); Globulin 2.5 g/dL (2.2-4.2); Glucose 223 mg/dL (74-106); Protein, Total 6.3 g/dL (6.4-8.2); Sodium Level 139 mmol/L (136-145); Thyroid Stim Hormone (TSH) 1.67 uIU/mL (0.358-3.74)
[2020-04-26 17:39] LABS: Absolute Lymphocyte Count 1.03 X10^3/uL (0.83-4.51); Absolute Neutrophil Count 7.2 X10^3/uL (2.0-7.7); Basophil# 0.03 X10^3/uL; Basophil% 0.4 % (0-1); Eosinophil# 0.01 X10^3/uL; Eosinophils% 0.1 % (0-5); Hematocrit 34.5 % (37-47); Hemoglobin 10.9 g/dL (12.0-15.0); Lymphocyte # 1.03 X10^3/ul (4.0); Lymphocyte % 12.1 % (19-41); Mean Corp Hgb Conc 31.6 g/dL (32-36); Mean Corpuscular Hgb 29.9 pg (27.0-32.0); Mean Corpuscular Volume 94.5 fL (81-99); Mean Platelet Vol. 10.9 fl (6.2-12.0); Monocyte# 0.26 X10^3/uL; NRBC Flagged by Analyzer 0 % (0-5); Neutrophil % 84.3 % (47-70); Platelet Count 325 K/mm3 (150-450); RBC Distribution Width CV 14.6 % (11.6-14.6); RBC Distribution Width SD 50.6 fl (35.1-43.9); Red Blood Count 3.65 M/mm3 (4.2-5.4); White Blood Count 8.5 K/mm3 (4.4-11.0)
== END ==
PROVIDERS: PCP Family Medicine Geriatric Medicine; Visit Provider Family Medicine Geriatric Medicine
DX: E11.65 Type 2 diabetes mellitus with hyperglycemia (principal); E55.9 Vitamin D deficiency, unspecified; I10 Essential (primary) hypertension
CPT/HCPCS: 36415; 80053; 82306; 84443; 85025

== ENCOUNTER → 2020-05-31 15:55 | Outpatient (CLI) | payer MEDICARE, SELFPAY ==
[2019-11-18 15:06] VITALS: BMI 28.6
[2020-05-31 18:11] LABS: Absolute Lymphocyte Count 0.95 X10^3/uL (0.83-4.51); Absolute Neutrophil Count 4.9 X10^3/uL (2.0-7.7); Basophil# 0.05 X10^3/uL; Basophil% 0.8 % (0-1); Eosinophil# 0.02 X10^3/uL; Eosinophils% 0.3 % (0-5); Hematocrit 33.9 % (37-47); Hemoglobin 10.8 g/dL (12.0-15.0); Lymphocyte # 0.95 X10^3/ul (4.0); Lymphocyte % 15.1 % (19-41); Mean Corp Hgb Conc 31.9 g/dL (32-36); Mean Corpuscular Hgb 30.5 pg (27.0-32.0); Mean Corpuscular Volume 95.8 fL (81-99); Mean Platelet Vol. 11.1 fl (6.2-12.0); Monocyte# 0.31 X10^3/uL; Monocyte% 4.9 % (0-10); NRBC Flagged by Analyzer 0 % (0-5); Neutrophil # 4.94 X10^3/uL (2.7-7.7); Neutrophil % 78.7 % (47-70); Platelet Count 286 K/mm3 (150-450); RBC Distribution Width CV 14.2 % (11.6-14.6); RBC Distribution Width SD 49.9 fl (35.1-43.9); Red Blood Count 3.54 M/mm3 (4.2-5.4); White Blood Count 6.3 K/mm3 (4.4-11.0)
[2020-05-31 18:36] LABS: ALB/GLOB Ratio 1.3 RATIO (0.9-2.4); AST(SGOT) 28 U/L (15-37); Alanine Aminotransfer ALT/SGPT 35 U/L (13-56); Albumin, Serum 3.9 g/dL (3.2-5.0); Alkaline Phosphatase 72 U/L (45-117); Anion Gap 6 (5-15); BUN 16 mg/dL (7-18); BUN/Creat Ratio 15.5 RATIO (10-20); Calcium,Total 9.1 mg/dL (8.5-10.1); Chloride 104 mmol/L (98-107); Creatinine, Serum 1.03 mg/dL (0.55-1.02); EST Glomerular Filtration Rate 55 mL/min (>60); Est Glom Filt Rate - Afr Amer 67 mL/min (>60); Glucose 185 mg/dL (74-106); Potassium 3.9 mmol/L (3.5-5.1); Protein, Total 6.9 g/dL (6.4-8.2); Sodium Level 137 mmol/L (136-145)
== END ==
PROVIDERS: PCP Family Medicine Geriatric Medicine; Referring Provider Internal Medicine Rheumatology; Visit Provider Internal Medicine Rheumatology
DX: M06.09 Rheumatoid arthritis without rheumatoid factor, multiple sites (principal); Z79.899 Other long term (current) drug therapy; M15.9 Polyosteoarthritis, unspecified; Q66.70 Congenital pes cavus, unspecified foot; E11.9 Type 2 diabetes mellitus without complications; I10 Essential (primary) hypertension; E78.5 Hyperlipidemia, unspecified; I35.9 Nonrheumatic aortic valve disorder, unspecified; N39.46 Mixed incontinence; N30.10 Interstitial cystitis (chronic) without hematuria; F32.89 Other specified depressive episodes
CPT/HCPCS: 36415; 80053; 85025

== ENCOUNTER → 2020-06-15 13:51 | Outpatient (CLI) | payer MEDICARE, SELFPAY ==
[2019-11-18 15:06] VITALS: BMI 28.6
[2020-06-15 13:03] LABS: Absolute Lymphocyte Count 0.73 X10^3/uL (0.83-4.51); Absolute Neutrophil Count 9.1 X10^3/uL (2.0-7.7); Basophil# 0.03 X10^3/uL; Basophil% 0.3 % (0-1); Hematocrit 36.7 % (37-47); Hemoglobin 11.5 g/dL (12.0-15.0); Lymphocyte # 0.73 X10^3/ul (4.0); Lymphocyte % 7.3 % (19-41); Mean Corp Hgb Conc 31.3 g/dL (32-36); Mean Corpuscular Hgb 30.1 pg (27.0-32.0); Mean Corpuscular Volume 96.1 fL (81-99); Mean Platelet Vol. 10.4 fl (6.2-12.0); Monocyte# 0.14 X10^3/uL; Monocyte% 1.4 % (0-10); NRBC Flagged by Analyzer 0 % (0-5); Neutrophil # 9.07 X10^3/uL (2.7-7.7); Neutrophil % 90.6 % (47-70); Platelet Count 279 K/mm3 (150-450); RBC Distribution Width CV 14.3 % (11.6-14.6); RBC Distribution Width SD 50.7 fl (35.1-43.9); Red Blood Count 3.82 M/mm3 (4.2-5.4)
[2020-06-15 13:28] LABS: Anion Gap 6 (5-15); BUN 13 mg/dL (7-18); BUN/Creat Ratio 14.4 RATIO (10-20); Calcium,Total 8.7 mg/dL (8.5-10.1); Chloride 107 mmol/L (98-107); EST Glomerular Filtration Rate 64 mL/min (>60); Est Glom Filt Rate - Afr Amer 78 mL/min (>60); Glucose 120 mg/dL (74-106); Potassium 4.2 mmol/L (3.5-5.1); Sodium Level 140 mmol/L (136-145)
--- NOTE | 2020-06-15 13:53 | MRI_ITS ---
STUDY: MRI BRAIN WITHOUT CONTRAST REASON FOR EXAM: Female, 74 years old. Posterior infarct, vertigo TECHNIQUE: Standardized multiplanar fat and water weighted pulse sequences were obtained. COMPARISON: None. FINDINGS: Brain parenchyma is intact without focal lesions, mass effect, extra parenchymal fluid collections, hydrocephalus or herniation. Major vascular flow structures are intact. 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 Odontoid is abnormal with possible fragmentation and severe degenerative change. MRI/Brain without Contrast IMPRESSION: 1. Normal brain. No posterior circulation infarct. 2. Abnormal left globe, ophthalmology referral is advised. 3. Abnormal odontoid, refer to cervical spine CT for more definitive evaluation. Electronically Signed: Patric Rankin, at 15:09 EDT Tel , Service support ,
== END ==
PROVIDERS: PCP Family Medicine Geriatric Medicine; Referring Provider Family Medicine Geriatric Medicine; Visit Provider Family Medicine Geriatric Medicine
DX: I63.50 Cerebral infarction due to unspecified occlusion or stenosis of unspecified cerebral artery (principal); H81.10 Benign paroxysmal vertigo, unspecified ear
CPT/HCPCS: 36415; 70551; 80048; 85025

== ENCOUNTER → 2020-06-30 14:54 | Outpatient (CLI) | payer MEDICARE, SELFPAY ==
[2019-11-18 15:06] VITALS: BMI 28.6
--- NOTE | 2020-06-30 14:57 | CT_ITS ---
STUDY: CT CERVICAL SPINE WITHOUT CONTRAST REASON FOR EXAM: Female, 74 years old. [place] fracture follow-up, fall 2 months ago RADIATION DOSAGE (If Supplied By Facility): CTDIvol = ( 21.50 ) mGy, DLP = ( 441.56 ) mGycm TECHNIQUE: High resolution transaxial imaging was performed without contrast material. Sagittal and coronal images were reconstructed. Individualized dose optimization techniques were used for this CT. COMPARISON: September 22 2012 FINDINGS: Recent prior imaging is not available for comparison and evaluation is therefore suboptimal. Diagnostic information is available. Craniocervical junction is intact and aligned. There is normal relationship between the condyles and C1. C1 is intact. There is mild irregularity of the left anterior aspect of C2 adjacent to the odontoid, possibly partially of falls cortical fracture involving the dorsal odontoid ligament. The left portion of the atlantoodontoid joint is shallow and deficient in bone structure compared to the right with mild cortical lucency and thickened ligament. Odontoid itself and remainder of C2 are intact. There is minor malalignment of the right C1-C2 facet joint compared to the left. Remainder of the cervical spine is intact and aligned. Mineralization and paraspinous soft tissues are normal. There are expected age-related changes. There is mild spondylotic thecal sac stenosis at C5-C6. Remainder of the levels are patent. Prevertebral soft tissues and airway are normal. CT/Spine Cervical without Contras IMPRESSION: 1. No acute fracture. 2. Recommend obtaining recent index imaging that demonstrates the original fracture for more comprehensive comparison. 3. Irregularity of the left dorsal odontoid ligament attachment site, possibly minimal cortical avulsion subacute/chronic stage avulsion fracture. Electronically Signed: Patric Rankin, at 15:44 EDT Tel , Service support ,
== END ==
PROVIDERS: PCP Family Medicine Geriatric Medicine; Referring Provider Family Medicine Geriatric Medicine; Visit Provider Family Medicine Geriatric Medicine
DX: S12.000A Unspecified displaced fracture of first cervical vertebra, initial encounter for closed fracture (principal)
CPT/HCPCS: 72125

== ENCOUNTER → 2020-07-21 14:33 | Outpatient (CLI) | payer MEDICARE, SELFPAY ==
[2019-11-18 15:06] VITALS: BMI 28.6
[2020-07-21 17:41] LABS: Absolute Neutrophil Count 5.6 X10^3/uL (2.0-7.7); Basophil# 0.06 X10^3/uL; Basophil% 0.8 % (0-1); Eosinophil# 0.15 X10^3/uL; Eosinophils% 1.9 % (0-5); Hematocrit 36.5 % (37-47); Hemoglobin 11.3 g/dL (12.0-15.0); Lymphocyte % 20.2 % (19-41); Mean Corpuscular Hgb 29.8 pg (27.0-32.0); Mean Corpuscular Volume 96.3 fL (81-99); Mean Platelet Vol. 11.2 fl (6.2-12.0); Monocyte# 0.49 X10^3/uL; Monocyte% 6.2 % (0-10); NRBC Flagged by Analyzer 0 % (0-5); Neutrophil # 5.59 X10^3/uL (2.7-7.7); Neutrophil % 70.6 % (47-70); Platelet Count 327 K/mm3 (150-450); RBC Distribution Width CV 14.5 % (11.6-14.6); RBC Distribution Width SD 51.4 fl (35.1-43.9); Red Blood Count 3.79 M/mm3 (4.2-5.4); White Blood Count 7.9 K/mm3 (4.4-11.0)
[2020-07-21 18:15] LABS: ALB/GLOB Ratio 1.4 RATIO (0.9-2.4); AST(SGOT) 18 U/L (15-37); Alanine Aminotransfer ALT/SGPT 29 U/L (13-56); Albumin, Serum 3.8 g/dL (3.2-5.0); Alkaline Phosphatase 81 U/L (45-117); Anion Gap 5 (5-15); BUN 13 mg/dL (7-18); Calcium,Total 8.9 mg/dL (8.5-10.1); Chloride 105 mmol/L (98-107); Creatinine, Serum 0.93 mg/dL (0.55-1.02); EST Glomerular Filtration Rate 62 mL/min (>60); Est Glom Filt Rate - Afr Amer 76 mL/min (>60); Globulin 2.8 g/dL (2.2-4.2); Glucose 176 mg/dL (74-106); Potassium 3.5 mmol/L (3.5-5.1); Protein, Total 6.6 g/dL (6.4-8.2); Sodium Level 140 mmol/L (136-145)
[2020-07-21 18:29] LABS: Ferritin 33 ng/mL (8-252); Iron 51 ug/dL (50-170); Iron Binding Capacity,Total 326 ug/dL (250-450)
== END ==
PROVIDERS: Internal Medicine Rheumatology; PCP Family Medicine Geriatric Medicine; Referring Provider Family Medicine Geriatric Medicine; Visit Provider Family Medicine Geriatric Medicine
DX: M06.09 Rheumatoid arthritis without rheumatoid factor, multiple sites (principal); Z79.899 Other long term (current) drug therapy; M15.9 Polyosteoarthritis, unspecified; Q66.70 Congenital pes cavus, unspecified foot; E11.9 Type 2 diabetes mellitus without complications; I10 Essential (primary) hypertension; E78.5 Hyperlipidemia, unspecified; I35.9 Nonrheumatic aortic valve disorder, unspecified; N39.46 Mixed incontinence; N30.10 Interstitial cystitis (chronic) without hematuria; F32.89 Other specified depressive episodes; M35.00 Sjogren syndrome, unspecified; D64.9 Anemia, unspecified
CPT/HCPCS: 36415; 80053; 82728; 83540; 83550; 85025

== ENCOUNTER → 2020-10-14 15:57 | Outpatient (CLI) | payer MEDICARE, SELFPAY ==
[2019-11-18 15:06] VITALS: BMI 28.6
[2020-10-14 17:59] LABS: Absolute Lymphocyte Count 2.64 X10^3/uL (0.83-4.51); Absolute Neutrophil Count 4.3 X10^3/uL (2.0-7.7); Basophil# 0.06 X10^3/uL; Basophil% 0.8 % (0-1); Eosinophil# 0.24 X10^3/uL; Eosinophils% 3.1 % (0-5); Hematocrit 36.5 % (37-47); Hemoglobin 11.9 g/dL (12.0-15.0); Lymphocyte # 2.64 X10^3/ul (4.0); Lymphocyte % 34.6 % (19-41); Mean Corp Hgb Conc 32.6 g/dL (32-36); Mean Corpuscular Hgb 30.4 pg (27.0-32.0); Mean Corpuscular Volume 93.4 fL (81-99); Mean Platelet Vol. 11.3 fl (6.2-12.0); Monocyte# 0.38 X10^3/uL; NRBC Flagged by Analyzer 0 % (0-5); Neutrophil # 4.28 X10^3/uL (2.7-7.7); Neutrophil % 56.2 % (47-70); Platelet Count 291 K/mm3 (150-450); RBC Distribution Width CV 13.7 % (11.6-14.6); RBC Distribution Width SD 46.6 fl (35.1-43.9); Red Blood Count 3.91 M/mm3 (4.2-5.4); White Blood Count 7.6 K/mm3 (4.4-11.0)
[2020-10-14 18:07] LABS: ALB/GLOB Ratio 1.3 RATIO (0.9-2.4); AST(SGOT) 22 U/L (15-37); Alanine Aminotransfer ALT/SGPT 26 U/L (13-56); Albumin, Serum 3.8 g/dL (3.2-5.0); Alkaline Phosphatase 78 U/L (45-117); Anion Gap 6 (5-15); BUN 12 mg/dL (7-18); BUN/Creat Ratio 14.1 RATIO (10-20); Calcium,Total 9.3 mg/dL (8.5-10.1); Chloride 105 mmol/L (98-107); Creatinine, Serum 0.85 mg/dL (0.55-1.02); EST Glomerular Filtration Rate 69 mL/min (>60); Est Glom Filt Rate - Afr Amer 84 mL/min (>60); Glucose 88 mg/dL (74-106); Potassium 3.5 mmol/L (3.5-5.1); Protein, Total 6.8 g/dL (6.4-8.2); Sodium Level 140 mmol/L (136-145)
== END ==
PROVIDERS: PCP Family Medicine Geriatric Medicine; Referring Provider Internal Medicine Rheumatology; Visit Provider Internal Medicine Rheumatology
DX: M06.09 Rheumatoid arthritis without rheumatoid factor, multiple sites (principal); Z79.899 Other long term (current) drug therapy; M35.00 Sjogren syndrome, unspecified; M15.9 Polyosteoarthritis, unspecified; Q66.70 Congenital pes cavus, unspecified foot; E11.9 Type 2 diabetes mellitus without complications; I10 Essential (primary) hypertension; E78.5 Hyperlipidemia, unspecified; I35.9 Nonrheumatic aortic valve disorder, unspecified; N39.46 Mixed incontinence; N30.10 Interstitial cystitis (chronic) without hematuria; F32.89 Other specified depressive episodes
CPT/HCPCS: 36415; 80053; 85025

== ENCOUNTER → 2020-12-28 15:44 | Outpatient (CLI) | payer MEDICARE, SELFPAY ==
[2019-11-18 15:06] VITALS: BMI 28.6
[2020-12-28 16:39] LABS: Absolute Lymphocyte Count 1.93 X10^3/uL (0.83-4.51); Basophil# 0.06 X10^3/uL; Basophil% 0.8 % (0-1); Eosinophil# 0.16 X10^3/uL; Eosinophils% 2.1 % (0-5); Hematocrit 40.4 % (37-47); Lymphocyte # 1.93 X10^3/ul (0.83-4.51); Lymphocyte % 25.5 % (19-41); Mean Corp Hgb Conc 32.2 g/dL (32-36); Mean Corpuscular Hgb 29.6 pg (27.0-32.0); Mean Platelet Vol. 10.8 fl (6.2-12.0); Monocyte# 0.44 X10^3/uL; Monocyte% 5.8 % (0-10); NRBC Flagged by Analyzer 0 % (0-5); Neutrophil # 4.97 X10^3/uL (2.7-7.7); Neutrophil % 65.5 % (47-70); Platelet Count 310 K/mm3 (150-450); RBC Distribution Width CV 12.8 % (11.6-14.6); RBC Distribution Width SD 43.1 fl (35.1-43.9); Red Blood Count 4.39 M/mm3 (4.2-5.4); White Blood Count 7.6 K/mm3 (4.4-11.0)
[2020-12-28 17:01] LABS: ALB/GLOB Ratio 1.2 RATIO (0.9-2.4); AST(SGOT) 18 U/L (15-37); Alanine Aminotransfer ALT/SGPT 22 U/L (13-56); Alkaline Phosphatase 94 U/L (45-117); Anion Gap 5 (5-15); BUN 13 mg/dL (7-18); Calcium,Total 9.5 mg/dL (8.5-10.1); Chloride 106 mmol/L (98-107); Creatinine, Serum 0.93 mg/dL (0.55-1.02); EST Glomerular Filtration Rate 62 mL/min (>60); Est Glom Filt Rate - Afr Amer 75 mL/min (>60); Globulin 3.2 g/dL (2.2-4.2); Glucose 101 mg/dL (74-106); Potassium 3.7 mmol/L (3.5-5.1); Protein, Total 7.2 g/dL (6.4-8.2); Sodium Level 141 mmol/L (136-145); Thyroid Stim Hormone (TSH) 2.84 uIU/mL (0.358-3.74)
[2020-12-29 08:11] LABS: Vitamin D,25 Hydroxy 38.1 ng/mL
== END ==
PROVIDERS: PCP Family Medicine Geriatric Medicine; Visit Provider Family Medicine Geriatric Medicine
DX: E11.65 Type 2 diabetes mellitus with hyperglycemia (principal); E55.9 Vitamin D deficiency, unspecified; I10 Essential (primary) hypertension
CPT/HCPCS: 36415; 80053; 82306; 84443; 85025

== ENCOUNTER → 2021-01-17 15:51 | Outpatient (CLI) | payer MEDICARE, SELFPAY ==
[2019-11-18 15:06] VITALS: BMI 28.6
[2021-01-17 17:31] LABS: Absolute Lymphocyte Count 2.57 X10^3/uL (0.83-4.51); Absolute Neutrophil Count 5.6 X10^3/uL (2.0-7.7); Basophil# 0.05 X10^3/uL; Basophil% 0.6 % (0-1); Eosinophil# 0.26 X10^3/uL; Eosinophils% 2.9 % (0-5); Hematocrit 39.8 % (37-47); Hemoglobin 12.8 g/dL (12.0-15.0); Lymphocyte # 2.57 X10^3/ul (0.83-4.51); Lymphocyte % 28.9 % (19-41); Mean Corp Hgb Conc 32.2 g/dL (32-36); Mean Corpuscular Hgb 29.4 pg (27.0-32.0); Mean Corpuscular Volume 91.5 fL (81-99); Mean Platelet Vol. 10.6 fl (6.2-12.0); Monocyte# 0.41 X10^3/uL; Monocyte% 4.6 % (0-10); NRBC Flagged by Analyzer 0 % (0-5); Neutrophil # 5.58 X10^3/uL (2.7-7.7); Neutrophil % 62.8 % (47-70); Platelet Count 369 K/mm3 (150-450); RBC Distribution Width CV 13.1 % (11.6-14.6); RBC Distribution Width SD 43.5 fl (35.1-43.9); Red Blood Count 4.35 M/mm3 (4.2-5.4); White Blood Count 8.9 K/mm3 (4.4-11.0)
[2021-01-17 18:18] LABS: ALB/GLOB Ratio 1.3 RATIO (0.9-2.4); AST(SGOT) 22 U/L (15-37); Alanine Aminotransfer ALT/SGPT 29 U/L (13-56); Alkaline Phosphatase 102 U/L (45-117); Anion Gap 8 (5-15); BUN 16 mg/dL (7-18); BUN/Creat Ratio 19.6 RATIO (10-20); Calcium,Total 9.4 mg/dL (8.5-10.1); Chloride 103 mmol/L (98-107); Creatinine, Serum 0.82 mg/dL (0.55-1.02); EST Glomerular Filtration Rate 72 mL/min (>60); Est Glom Filt Rate - Afr Amer 87 mL/min (>60); Globulin 3.1 g/dL (2.2-4.2); Glucose 175 mg/dL (74-106); Potassium 3.4 mmol/L (3.5-5.1); Protein, Total 7.1 g/dL (6.4-8.2); Sodium Level 139 mmol/L (136-145)
== END ==
PROVIDERS: PCP Family Medicine Geriatric Medicine; Referring Provider Internal Medicine Rheumatology; Visit Provider Internal Medicine Rheumatology
DX: M06.09 Rheumatoid arthritis without rheumatoid factor, multiple sites (principal); Z79.899 Other long term (current) drug therapy; M35.00 Sjogren syndrome, unspecified; M15.9 Polyosteoarthritis, unspecified; Q66.70 Congenital pes cavus, unspecified foot; E11.9 Type 2 diabetes mellitus without complications; I10 Essential (primary) hypertension; E78.5 Hyperlipidemia, unspecified; I35.9 Nonrheumatic aortic valve disorder, unspecified; N39.46 Mixed incontinence; N30.10 Interstitial cystitis (chronic) without hematuria; F32.89 Other specified depressive episodes
CPT/HCPCS: 36415; 80053; 85025

== ENCOUNTER → 2021-03-28 15:27 | Outpatient (CLI) | payer MEDICARE, SELFPAY ==
[2019-11-18 15:06] VITALS: BMI 28.6
[2021-03-28 16:46] LABS: Absolute Lymphocyte Count 2.67 X10^3/uL (0.83-4.51); Basophil# 0.05 X10^3/uL; Basophil% 0.6 % (0-1); Eosinophil# 0.17 X10^3/uL; Hematocrit 37.8 % (37-47); Hemoglobin 12.4 g/dL (12.0-15.0); Lymphocyte # 2.67 X10^3/ul (0.83-4.51); Mean Corp Hgb Conc 32.8 g/dL (32-36); Mean Corpuscular Volume 91.3 fL (81-99); Monocyte# 0.47 X10^3/uL; Monocyte% 5.6 % (0-10); NRBC Flagged by Analyzer 0 % (0-5); Neutrophil # 4.98 X10^3/uL (2.7-7.7); Neutrophil % 59.7 % (47-70); Platelet Count 367 K/mm3 (150-450); RBC Distribution Width CV 13.3 % (11.6-14.6); RBC Distribution Width SD 44.4 fl (35.1-43.9); Red Blood Count 4.14 M/mm3 (4.2-5.4); White Blood Count 8.4 K/mm3 (4.4-11.0)
[2021-03-28 17:32] LABS: ALB/GLOB Ratio 1.3 RATIO (0.9-2.4); AST(SGOT) 30 U/L (15-37); Alanine Aminotransfer ALT/SGPT 35 U/L (13-56); Albumin, Serum 3.9 g/dL (3.2-5.0); Alkaline Phosphatase 84 U/L (45-117); Anion Gap 8 (5-15); BUN 25 mg/dL (7-18); BUN/Creat Ratio 20.7 RATIO (10-20); Calcium,Total 10.1 mg/dL (8.5-10.1); Chloride 98 mmol/L (98-107); Creatinine, Serum 1.21 mg/dL (0.55-1.02); EST Glomerular Filtration Rate 46 mL/min (>60); Est Glom Filt Rate - Afr Amer 56 mL/min (>60); Globulin 3.1 g/dL (2.2-4.2); Glucose 147 mg/dL (74-106); Potassium 4.6 mmol/L (3.5-5.1); Sodium Level 135 mmol/L (136-145); Thyroid Stim Hormone (TSH) 6.96 uIU/mL (0.358-3.74)
[2021-03-28 17:34] LABS: Vitamin D,25 Hydroxy 41.1 ng/mL
== END ==
PROVIDERS: PCP Family Medicine Geriatric Medicine; Visit Provider Family Medicine Geriatric Medicine
DX: E11.65 Type 2 diabetes mellitus with hyperglycemia (principal); E55.9 Vitamin D deficiency, unspecified; I10 Essential (primary) hypertension
CPT/HCPCS: 36415; 80053; 82306; 84443; 85025

== ENCOUNTER → 2021-04-06 16:00 | Outpatient (CLI) | payer MEDICARE, SELFPAY ==
[2019-11-18 15:06] VITALS: BMI 28.6
[2021-04-06 18:05] LABS: Absolute Lymphocyte Count 1.37 X10^3/uL (0.83-4.51); Absolute Neutrophil Count 6.7 X10^3/uL (2.0-7.7); Basophil# 0.04 X10^3/uL; Basophil% 0.5 % (0-1); Eosinophil# 0.04 X10^3/uL; Eosinophils% 0.5 % (0-5); Hematocrit 36.9 % (37-47); Hemoglobin 12.2 g/dL (12.0-15.0); Lymphocyte # 1.37 X10^3/ul (0.83-4.51); Lymphocyte % 16.2 % (19-41); Mean Corp Hgb Conc 33.1 g/dL (32-36); Mean Corpuscular Hgb 30.4 pg (27.0-32.0); Mean Platelet Vol. 10.6 fl (6.2-12.0); Monocyte# 0.33 X10^3/uL; Monocyte% 3.9 % (0-10); NRBC Flagged by Analyzer 0 % (0-5); Neutrophil # 6.65 X10^3/uL (2.7-7.7); Neutrophil % 78.5 % (47-70); Platelet Count 345 K/mm3 (150-450); RBC Distribution Width CV 13.2 % (11.6-14.6); RBC Distribution Width SD 44.5 fl (35.1-43.9); Red Blood Count 4.01 M/mm3 (4.2-5.4); White Blood Count 8.5 K/mm3 (4.4-11.0)
[2021-04-06 18:19] LABS: ALB/GLOB Ratio 1.4 RATIO (0.9-2.4); AST(SGOT) 21 U/L (15-37); Alanine Aminotransfer ALT/SGPT 31 U/L (13-56); Alkaline Phosphatase 99 U/L (45-117); Anion Gap 9 (5-15); BUN 14 mg/dL (7-18); BUN/Creat Ratio 18.6 RATIO (10-20); Calcium,Total 9.2 mg/dL (8.5-10.1); Chloride 104 mmol/L (98-107); Creatinine, Serum 0.75 mg/dL (0.55-1.02); EST Glomerular Filtration Rate 79 mL/min (>60); Est Glom Filt Rate - Afr Amer 96 mL/min (>60); Globulin 2.9 g/dL (2.2-4.2); Glucose 141 mg/dL (74-106); Potassium 4.4 mmol/L (3.5-5.1); Protein, Total 6.9 g/dL (6.4-8.2); Sodium Level 141 mmol/L (136-145)
== END ==
PROVIDERS: PCP Family Medicine Geriatric Medicine; Referring Provider Internal Medicine Rheumatology; Visit Provider Internal Medicine Rheumatology
DX: M06.09 Rheumatoid arthritis without rheumatoid factor, multiple sites (principal); Z79.899 Other long term (current) drug therapy; M35.00 Sjogren syndrome, unspecified; M15.9 Polyosteoarthritis, unspecified; Q66.70 Congenital pes cavus, unspecified foot; E11.9 Type 2 diabetes mellitus without complications
CPT/HCPCS: 36415; 80053; 85025

== ENCOUNTER → 2021-06-27 16:25 | Outpatient (CLI) | payer MEDICARE, SELFPAY ==
[2021-06-27 17:13] LABS: Absolute Lymphocyte Count 1.94 X10^3/uL (0.83-4.51); Absolute Neutrophil Count 3.4 X10^3/uL (2.0-7.7); Basophil# 0.05 X10^3/uL; Basophil% 0.8 % (0-1); Eosinophil# 0.19 X10^3/uL; Eosinophils% 3.1 % (0-5); Hematocrit 36.6 % (37-47); Lymphocyte # 1.94 X10^3/ul (0.83-4.51); Lymphocyte % 32.1 % (19-41); Mean Corp Hgb Conc 32.8 g/dL (32-36); Mean Corpuscular Volume 94.6 fL (81-99); Monocyte# 0.42 X10^3/uL; NRBC Flagged by Analyzer 0 % (0-5); Neutrophil # 3.43 X10^3/uL (2.7-7.7); Neutrophil % 56.8 % (47-70); Platelet Count 316 K/mm3 (150-450); RBC Distribution Width CV 14.3 % (11.6-14.6); RBC Distribution Width SD 49.3 fl (35.1-43.9); Red Blood Count 3.87 M/mm3 (4.2-5.4)
[2021-06-27 17:25] LABS: Vitamin D,25 Hydroxy 38.4 ng/mL
[2021-06-27 17:36] LABS: ALB/GLOB Ratio 1.3 RATIO (0.9-2.4); AST(SGOT) 20 U/L (15-37); Alanine Aminotransfer ALT/SGPT 31 U/L (13-56); Albumin, Serum 3.7 g/dL (3.2-5.0); Alkaline Phosphatase 84 U/L (45-117); Anion Gap 7 (5-15); BUN 15 mg/dL (7-18); BUN/Creat Ratio 18.8 RATIO (10-20); Calcium,Total 9.1 mg/dL (8.5-10.1); Chloride 104 mmol/L (98-107); EST Glomerular Filtration Rate 74 mL/min (>60); Est Glom Filt Rate - Afr Amer 90 mL/min (>60); Globulin 2.9 g/dL (2.2-4.2); Glucose 126 mg/dL (74-106); Protein, Total 6.6 g/dL (6.4-8.2); Sodium Level 140 mmol/L (136-145); Thyroid Stim Hormone (TSH) 5.93 uIU/mL (0.358-3.74)
== END ==
PROVIDERS: PCP Family Medicine Geriatric Medicine; Visit Provider Family Medicine Geriatric Medicine
DX: E11.65 Type 2 diabetes mellitus with hyperglycemia (principal); E55.9 Vitamin D deficiency, unspecified; I10 Essential (primary) hypertension
CPT/HCPCS: 36415; 80053; 82306; 84443; 85025

== ENCOUNTER → 2021-06-28 16:36 | Outpatient (CLI) | payer MEDICARE, SELFPAY ==
[2021-06-28 18:13] LABS: Absolute Lymphocyte Count 1.08 X10^3/uL (0.83-4.51); Absolute Neutrophil Count 6.8 X10^3/uL (2.0-7.7); Basophil# 0.04 X10^3/uL; Basophil% 0.5 % (0-1); Eosinophils% 2.3 % (0-5); Hematocrit 34.9 % (37-47); Hemoglobin 11.3 g/dL (12.0-15.0); Lymphocyte # 1.08 X10^3/ul (0.83-4.51); Lymphocyte % 12.6 % (19-41); Mean Corp Hgb Conc 32.4 g/dL (32-36); Mean Corpuscular Volume 95.9 fL (81-99); Mean Platelet Vol. 10.3 fl (6.2-12.0); Monocyte# 0.42 X10^3/uL; Monocyte% 4.9 % (0-10); NRBC Flagged by Analyzer 0 % (0-5); Neutrophil % 79.3 % (47-70); Platelet Count 312 K/mm3 (150-450); RBC Distribution Width CV 14.2 % (11.6-14.6); RBC Distribution Width SD 49.1 fl (35.1-43.9); Red Blood Count 3.64 M/mm3 (4.2-5.4); White Blood Count 8.6 K/mm3 (4.4-11.0)
[2021-06-28 18:20] LABS: ALB/GLOB Ratio 1.2 RATIO (0.9-2.4); AST(SGOT) 22 U/L (15-37); Alanine Aminotransfer ALT/SGPT 31 U/L (13-56); Albumin, Serum 3.7 g/dL (3.2-5.0); Alkaline Phosphatase 74 U/L (45-117); Anion Gap 7 (5-15); BUN 22 mg/dL (7-18); BUN/Creat Ratio 24.9 RATIO (10-20); Calcium,Total 9.1 mg/dL (8.5-10.1); Chloride 101 mmol/L (98-107); Creatinine, Serum 0.88 mg/dL (0.55-1.02); EST Glomerular Filtration Rate 66 mL/min (>60); Est Glom Filt Rate - Afr Amer 80 mL/min (>60); Globulin 3.1 g/dL (2.2-4.2); Glucose 117 mg/dL (74-106); Potassium 3.7 mmol/L (3.5-5.1); Protein, Total 6.8 g/dL (6.4-8.2); Sodium Level 136 mmol/L (136-145)
== END ==
PROVIDERS: PCP Family Medicine Geriatric Medicine; Referring Provider Internal Medicine Rheumatology; Visit Provider Internal Medicine Rheumatology
DX: M06.09 Rheumatoid arthritis without rheumatoid factor, multiple sites (principal); Z79.899 Other long term (current) drug therapy; M35.00 Sjogren syndrome, unspecified; M15.9 Polyosteoarthritis, unspecified; Q66.70 Congenital pes cavus, unspecified foot; E11.9 Type 2 diabetes mellitus without complications; I10 Essential (primary) hypertension; E78.5 Hyperlipidemia, unspecified; I35.9 Nonrheumatic aortic valve disorder, unspecified; N39.46 Mixed incontinence; N30.10 Interstitial cystitis (chronic) without hematuria; F32.89 Other specified depressive episodes; K76.0 Fatty (change of) liver, not elsewhere classified
CPT/HCPCS: 36415; 80053; 85025

== ENCOUNTER 2021-09-20 15:59 | Outpatient (CLI) | payer MEDICARE, SELFPAY ==
[2021-09-20 18:10] LABS: Absolute Lymphocyte Count 1.56 X10^3/uL (0.83-4.51); Absolute Neutrophil Count 3.9 X10^3/uL (2.0-7.7); Basophil# 0.03 X10^3/uL; Basophil% 0.5 % (0-1); Eosinophil# 0.15 X10^3/uL; Eosinophils% 2.6 % (0-5); Hematocrit 34.9 % (37-47); Hemoglobin 11.3 g/dL (12.0-15.0); Lymphocyte # 1.56 X10^3/ul (0.83-4.51); Lymphocyte % 26.6 % (19-41); Mean Corp Hgb Conc 32.4 g/dL (32-36); Mean Corpuscular Hgb 31.2 pg (27.0-32.0); Mean Corpuscular Volume 96.4 fL (81-99); Mean Platelet Vol. 10.1 fl (6.2-12.0); Monocyte# 0.25 X10^3/uL; Monocyte% 4.3 % (0-10); NRBC Flagged by Analyzer 0 % (0-5); Neutrophil # 3.86 X10^3/uL (2.7-7.7); Neutrophil % 65.8 % (47-70); Platelet Count 319 K/mm3 (150-450); RBC Distribution Width CV 14.6 % (11.6-14.6); RBC Distribution Width SD 51.1 fl (35.1-43.9); Red Blood Count 3.62 M/mm3 (4.2-5.4); White Blood Count 5.9 K/mm3 (4.4-11.0)
[2021-09-20 18:42] LABS: ALB/GLOB Ratio 1.3 RATIO (0.9-2.4); AST(SGOT) 26 U/L (15-37); Alanine Aminotransfer ALT/SGPT 45 U/L (13-56); Albumin, Serum 3.8 g/dL (3.2-5.0); Alkaline Phosphatase 76 U/L (45-117); Anion Gap 5 (5-15); BUN 17 mg/dL (7-18); BUN/Creat Ratio 20.5 RATIO (10-20); Calcium,Total 9.2 mg/dL (8.5-10.1); Chloride 106 mmol/L (98-107); Creatinine, Serum 0.83 mg/dL (0.55-1.02); EST Glomerular Filtration Rate 71 mL/min (>60); Est Glom Filt Rate - Afr Amer 86 mL/min (>60); Glucose 88 mg/dL (74-106); Potassium 3.7 mmol/L (3.5-5.1); Protein, Total 6.8 g/dL (6.4-8.2); Sodium Level 140 mmol/L (136-145)
== END 2021-09-20 23:59 | disposition short-term general hospital (02) ==
LOC: MTLAB 16:01
PROVIDERS: PCP Family Medicine Geriatric Medicine; Referring Provider Internal Medicine Rheumatology; Visit Provider Internal Medicine Rheumatology
DX: M06.09 Rheumatoid arthritis without rheumatoid factor, multiple sites (principal); M35.00 Sjogren syndrome, unspecified; E11.9 Type 2 diabetes mellitus without complications; M15.9 Polyosteoarthritis, unspecified; Q66.70 Congenital pes cavus, unspecified foot; I10 Essential (primary) hypertension; E78.5 Hyperlipidemia, unspecified; I35.9 Nonrheumatic aortic valve disorder, unspecified; N39.46 Mixed incontinence; N30.10 Interstitial cystitis (chronic) without hematuria; F32.89 Other specified depressive episodes; K76.0 Fatty (change of) liver, not elsewhere classified; Z79.899 Other long term (current) drug therapy
CPT/HCPCS: 36415; 80053; 85025

== ENCOUNTER 2021-10-20 15:51 | Outpatient (CLI) | payer MEDICARE, SELFPAY ==
--- NOTE | 2021-10-20 16:00 | RAD_ITS ---
EXAM: XR CHEST, 2 VIEWS : 1945 CLINICAL INDICATION: DODD TECHNIQUE: Frontal and lateral views of the chest. This report was created using [employer] report generation technology. COMPARISON: 08/29/2018 FINDINGS: LUNGS AND PLEURAL SPACES: There are interstitial opacities in the lung bases. No pneumothorax. No effusion. HEART: Unremarkable. Cardiac silhouette not enlarged. MEDIASTINUM: Central airways and mediastinal contour are unremarkable. BONES/JOINTS: Unremarkable. SOFT TISSUES: Unremarkable. RAD/Chest PA and Lateral IMPRESSION: Bibasilar interstitial opacities which may represent scar or edema. at 1702 Reported and signed by: Martinez Herrera MD Electronically Signed: Martinez Herrera MD at 17:00 EST ,
[2021-10-20 18:16] LABS: Absolute Lymphocyte Count 1.15 X10^3/uL (0.83-4.51); Absolute Neutrophil Count 3.6 X10^3/uL (2.0-7.7); Basophil# 0.05 X10^3/uL; Basophil% 0.9 % (0-1); Eosinophil# 0.16 X10^3/uL; Hematocrit 34.3 % (37-47); Hemoglobin 11.4 g/dL (12.0-15.0); Lymphocyte # 1.15 X10^3/ul (0.83-4.51); Lymphocyte % 21.3 % (19-41); Mean Corp Hgb Conc 33.2 g/dL (32-36); Mean Corpuscular Hgb 31.1 pg (27.0-32.0); Mean Corpuscular Volume 93.5 fL (81-99); Monocyte# 0.42 X10^3/uL; Monocyte% 7.8 % (0-10); NRBC Flagged by Analyzer 0 % (0-5); Neutrophil # 3.59 X10^3/uL (2.7-7.7); Neutrophil % 66.6 % (47-70); Platelet Count 553 K/mm3 (150-450); RBC Distribution Width CV 14.9 % (11.6-14.6); Red Blood Count 3.67 M/mm3 (4.2-5.4); White Blood Count 5.4 K/mm3 (4.4-11.0)
[2021-10-20 18:24] LABS: Anion Gap 8 (5-15); BUN 17 mg/dL (7-18); BUN/Creat Ratio 20.7 RATIO (10-20); Calcium,Total 9.3 mg/dL (8.5-10.1); Chloride 107 mmol/L (98-107); Creatinine, Serum 0.82 mg/dL (0.55-1.02); EST Glomerular Filtration Rate 72 mL/min (>60); Est Glom Filt Rate - Afr Amer 87 mL/min (>60); Glucose 117 mg/dL (74-106); Potassium 3.8 mmol/L (3.5-5.1); Sodium Level 141 mmol/L (136-145)
== END 2021-10-20 23:59 | disposition home or self-care (01) ==
PROVIDERS: PCP Family Medicine Geriatric Medicine; Visit Provider Physician Assistant Medical
DX: R06.00 Dyspnea, unspecified (principal)
CPT/HCPCS: 36415; 71046; 80048; 83880; 85025; 85379

== ENCOUNTER 2021-10-20 21:10 | Emergency (ER) | payer MEDICARE, SELFPAY ==
[2021-10-20 21:11] VITALS: BP 153/88; PULSE 91; RESP 16; TEMP 36.1; O2SAT 98; BMI 28.8
--- NOTE | 2021-10-20 21:25 | CT_ITS ---
STUDY: CTA CHEST REASON FOR EXAM: Female, 75 years old. chest pain RADIATION DOSAGE (If Supplied By Facility): CTDIvol = ( 8.33 ) mGy, DLP = ( 293.65 ) mGycm TECHNIQUE: The examination was performed with the intravenous administration of IV 100mL Isovue-370. Post-processing of the angiographic images was performed, with multiplanar reformation and 3D reconstruction. Individualized dose optimization techniques were used for this CT. COMPARISON: Chest x-ray dated October 20, 2021 FINDINGS: Moderate groundglass edema is present throughout both lungs. No visualized focal consolidation. No pleural effusion is present. Normal enhancement of the main pulmonary artery and right and left pulmonary arteries. Normal enhancement of the bilateral peripheral pulmonary arteries. There is no demonstrated pulmonary embolism. There is atherosclerotic calcification of the aortic arch with tortuosity. There is no demonstrated aortic dissection. Normal heart size and pericardium. There are minor calcifications of the coronary arteries. Normal mediastinum. Normal hilar regions. Normal visualized trachea and bronchi. The lungs are well expanded. Normal pleura. Normal chest wall structures. There are degenerative changes of thoracic spine. Unremarkable visualized upper abdomen. Multiple calcifications are seen in the spleen. CT/CTA Chest W/WO Contrast IMPRESSION: 1. No a demonstrated pulmonary embolism or arterial dissection. 2. Moderate groundglass edema is present throughout both lungs. No visualized focal consolidation. No pleural effusion is present. Electronically Signed: Edgard Murray MD at 22:42 EST ,
[2021-10-20 22:14] LABS: Troponin-I HS 159 pg/mL (3.0-54.0)
--- NOTE | 2021-10-20 22:17 | EKG12_ITS ---
Test Reason : AM EKG Blood Pressure : / mmHG Vent. Rate : 065 BPM Atrial Rate : 065 BPM P-R Int : 146 ms QRS Dur : 102 ms QT Int : 460 ms P-R-T Axes : 054 -31 130 degrees QTc Int : 478 ms Normal sinus rhythm Left axis deviation Voltage criteria for left ventricular hypertrophy T wave abnormality, consider lateral ischemia Septal IA, age undetermined, cannot be excluded Abnormal ECG Confirmed by DORIAN BHATTI, AMAYA ([id number]), story editor STEPH VILLANUEVA ([id number]) on 10/25/2021 1:07:00 PM Referred By: MITCH Confirmed By:AMAYA ALARCON MD
--- NOTE | 2021-10-20 22:29 | EX.ED.DYSGE1 ---
HPI History of Present Illness Chief Complaint: Abn Labs Narrative Narrative: 75-year-old female presenting with dyspnea and chest pressure. She states this occurs with exertion. She states it does not occur at rest. She has noticed this has been worsening over the last couple of weeks. She was seen today by cardiology and had blood work done. She was told she had an elevated D-dimer and needed to come to the emergency room for a CTA of her chest. She states she has not had any echocardiogram in a couple of years. She has not had a stress test. She relates a history of diabetes, hyperlipidemia, aortic stenosis. Patient denies fever, chills, cough. She denies nausea or vomiting. [facility] Medical History Abnormal EKG Essential (primary) hypertension Hypercholesterolemia Left ventricular diastolic dysfunction Nonrheumatic aortic (valve) stenosis Rheumatoid arthritis Syncope (03/2020) Type 2 diabetes mellitus Home Medications lisinopril 1 tab PO DAILY 10/05/18 [History Last Taken Unknown] metformin 1 tab PO BID 10/05/18 [History Last Taken Unknown] atorvastatin 80 mg tablet 80 mg PO DAILY 11/18/19 [History Last Taken Unknown] citalopram 20 mg tablet 20 mg PO DAILY 11/18/19 [History Last Taken Unknown] famotidine 40 mg tablet 40 mg PO DAILY 11/18/19 [History Last Taken Unknown] folic acid 1 mg tablet 1 mg PO BID tab 11/18/19 [History Last Taken Unknown] glimepiride 2 mg tablet 2 mg PO BID tab 11/18/19 [History Last Taken Unknown] methotrexate sodium 2.5 mg tablet 2.5 mg PO QWEEK 11/18/19 [History Last Taken Unknown] prednisone 10 mg tablet 10 mg PO DAILY PRN 11/18/19 [History Last Taken Unknown] Allergy/AdvReac Type Severity Reaction Status Date / Time No Known Allergies Allergy Verified 10/20/21 21:11 thyroid medication Allergy blurred Uncoded 10/20/21 21:11 vision Surgical History H/O: hysterectomy History of bladder surgery History of throat surgery History of tonsillectomy Social History Smoking Status: Never smoker alcohol intake: former caffeine: Yes Type: coffee ROS ROS ED Constitutional Constitutional ED: Denies chills or fever(s) Eyes Eyes: Denies blurry vision or diplopia ENT ENT ED: Denies rhinorrhea or sore throat Cardiovascular Cardiovascular: Denies chest pain or palpitations Respiratory/Chest Respiratory/Chest: Denies cough or dyspnea Gastrointestinal Gastrointestinal: Denies abdominal pain, nausea or vomiting Genitourinary Genitourinary ED: Denies dysuria or hematuria Musculoskeletal Musculoskeletal: Denies arthralgias or myalgias Integumentary Denies abscess or rash Neurologic Neurologic: Denies headache(s) or weakness EXAM Physical Exam Const Vital Signs: 10/20/21 21:11 Temperature 97 F L Temperature Source Temporal Pulse Rate 91 Respiratory Rate 16 Blood Pressure 153/88 H Blood Pressure Mean 109 Pulse Ox 98 Oxygen Delivery Method Room Air Positive well nourished General Appearance ED: NAD HEENT Reports moist mucous membranes Negative for trauma Eyes PERRL and EOMs intact bilaterally Neck no lymphadenopathy and supple Resp normal respiratory effort and clear to auscultation bilaterally Cardio regular rate and regular rhythm GI normal to inspection, nondistended, normoactive bowel sounds Neuro oriented x3, CN's II-XII intact bilaterally and no sensory deficits noted Sensorium / Orientation: alert Motor Exam: strength 5/5 throughout Skin no rashes or lesions noted MDM MDM MDM Narrative Medical decision making narrative: Patient presented today with exertional chest pain and dyspnea. I saw her lab work today and she had an elevated BNP at 1100. Otherwise her lab work was unremarkable. I did notice that no troponin was drawn and I did obtain a troponin and an EKG. On my interpretation of the EKG is a normal sinus rhythm with a ventricular 80 bpm but with left deviation. There is no ST elevation or depression. High-sensitivity troponin was 159. CTA of the chest which she was sent in for due to elevated D-dimer was negative for PE or dissection. There were no infiltrates found. I counseled the patient that her cardiac enzymes were very high and that she would need to be admitted for further work-up. At this point she states that she has for babies at home. She is referring to her dogs. She does not want to stay in the hospital and acknowledges understanding that she with severe injury, disability, if she goes home. Patient is counseled that she can return at any time if she changes her mind or if she has any new or worsening symptoms. Impression: 1. Chest pain 2. Elevated troponin Lab Data Labs: Laboratory Results - last 24 hr 10/20/21 21:45 Troponin I High Sens 159 H* Radiography Diagnostic Testing: Clinical Impression(s) from Imaging Studies Chest CTA 10/20/21 21:25 IMPRESSION: 1. No a demonstrated pulmonary embolism or arterial dissection. 2. Moderate groundglass edema is present throughout both lungs. No visualized focal consolidation. No pleural effusion is present. Electronically Signed: Edgard Murray MD at 22:42 EST Reading Location ID and State: [facility] / [place] , Service support , Discharge Plan Triage Chief Complaint: Abn Labs ED Provider: Wilberto Vargas Dx/Rx/DC Orders Instructions: CAD, AMA Prescriptions: No Action prednisone 10 mg tablet 10 mg PO DAILY PRN (Reason: Inflammation) RF: 0 glimepiride 2 mg tablet 2 mg PO BID RF: 0 folic acid 1 mg tablet 1 mg PO BID RF: 0 methotrexate sodium 2.5 mg tablet 2.5 mg PO QWEEK RF: 0 citalopram 20 mg tablet 20 mg PO DAILY RF: 0 atorvastatin 80 mg tablet 80 mg PO DAILY RF: 0 famotidine 40 mg tablet 40 mg PO DAILY RF: 0 metformin 1,000 MG tablet 1 tab PO BID RF: 0 lisinopril 5 MG tablet 1 tab PO DAILY RF: 0 Primary Care Provider: Luigi Davalos Chi Referrals: Luigi Davalos Chi, MD [Primary Care Provider] - Activity Restrictions/Additional Instructions: Your cardiac enzymes are elevated today. As discussed this could be because you are having a cardiac event. I recommended to you that you stay in the hospital and that leaving means you risks severe injury disability or even . You will need to speak to your video presentation operator as soon as possible and I have already spoken to Dr. Ash. You should return for any new or worsening symptoms. Disposition Disposition: Against Medical Advice Discharge Date/Time: 10/20/21 23:03
--- NOTE | 2021-10-20 23:00 | ED.RN ---
pt upset and crying, pt's troponin is elevated and pt requested to go home to care for her 4 dogs; of which, all are on medications bid. pt reported to this nurse she will return tomorrow once she is able to care for her animals. pt signed AMA form and copy given to pt.
== END 2021-10-20 23:03 | disposition left against medical advice (07) ==
PROVIDERS: Emergency Provider Student in an Organized Health Care Education/Training Program; PCP Family Medicine Geriatric Medicine; Visit Provider Student in an Organized Health Care Education/Training Program
DX: R07.89 Other chest pain (principal); M06.9 Rheumatoid arthritis, unspecified; E11.9 Type 2 diabetes mellitus without complications; R06.00 Dyspnea, unspecified; I10 Essential (primary) hypertension; E78.5 Hyperlipidemia, unspecified; E78.00 Pure hypercholesterolemia, unspecified; R79.89 Other specified abnormal findings of blood chemistry; I35.0 Nonrheumatic aortic (valve) stenosis; Z79.84 Long term (current) use of oral hypoglycemic drugs; Z79.899 Other long term (current) drug therapy
CPT/HCPCS: 36415; 71046; 71275; 80048; 83880; 84484; 85025; 85379; 93005; 99282; Q9967; A4216

== ENCOUNTER 2021-10-21 10:01 | Inpatient (IN) | payer MEDICARE, SELFPAY ==
[2021-10-21] VITALS (10 sets, daily range): BP systolic 135–147; BP diastolic 59–76; PULSE 66–94; RESP 16–18; TEMP 36.5–36.9; O2SAT 95–100; BMI 27.4; BMI 25.0
--- NOTE | 2021-10-21 10:17 | RAD_ITS ---
STUDY: X-RAY CHEST REASON FOR EXAM: Female, 75 years old. chest pain TECHNIQUE: Single AP portable view of the chest. COMPARISON: 10/20/2021 FINDINGS: The lungs are clear and expanded. There is no demonstrated pleural abnormality. Normal size heart. Normal mediastinum and tami. Normal visualized pulmonary arteries. Normal visualized aortic arch and descending thoracic aorta. Normal visualized thoracic spine. Normal visualized ribs, clavicles, and shoulders. There is no demonstrated abnormality of the visualized soft tissue structures of the upper abdomen. RAD/Chest 1 View (Portable) IMPRESSION: Normal x-ray examination of the chest. Electronically Signed: David Mendez MD at 10:46 EST ,
--- NOTE | 2021-10-21 10:17 | EKG12_ITS ---
Test Reason : DYSRHYTHMIA Blood Pressure : / mmHG Vent. Rate : 080 BPM Atrial Rate : 080 BPM P-R Int : 144 ms QRS Dur : 100 ms QT Int : 424 ms P-R-T Axes : 054 -31 139 degrees QTc Int : 489 ms Normal sinus rhythm Left axis deviation Left ventricular hypertrophy with repolarization abnormality Abnormal ECG Confirmed by LUCA BHATTI, ANGELES ([id number]), industrial editor STEPH VILLANUEVA ([id number]) on 10/25/2021 12:31:26 P M Referred By: FRANNY Confirmed By:XIN SEGOVIA MD
--- NOTE | 2021-10-21 10:24 | EDS_ITS ---
HPI <MARILYN Adamson - Last Filed: 10/21/21 13:14> History of Present Illness Chief Complaint: Shortness of Breath Narrative Narrative: 75-year-old female with PMH of HTN, HLD, DM2, aortic stenosis presents with exertional chest pain and dyspnea worsening over the last 2-3 months. She has no symptoms at rest. She had an elevated outpatient D-dimer and was sent to the ER last night. Her CTA was negative. EKG last night was nonischemic but troponin was 159 and BNP 1100. Patient left AMA as she had to make arrangements at home but returned today for admission. She has not had chest pain since she left the hospital but is still very dyspneic on exertion af ter walking 10 to 20 feet. PFSH <MARILYN Adamson - Last Filed: 10/21/21 13:14> [facility]LY [facility] Medical History (Updated 10/21/21 @ 15:[address] Bushra Almanzar DO) Abnormal EKG Essential (primary) hypertension Hypercholesterolemia Left ventricular diastolic dysfunction Nonrheumatic aortic (valve) stenosis Normocytic anemia Rheumatoid arthritis Syncope (03/2020) Type 2 diabetes mellitus Home Medications lisinopril 1 tab PO DAILY 10/05/18 [History Last Taken Unknown] metformin 1 tab PO BID 10/05/18 [History Last Taken Unknown] atorvastatin 80 mg tablet 80 mg PO DAILY 11/18/19 [History Last Taken Unknown] citalopram 20 mg tablet 20 mg PO DAILY 11/18/19 [History Last Taken Unknown] famotidine 40 mg tablet 40 mg PO DAILY 11/18/19 [History Last Taken Unknown] folic acid 1 mg tablet 1 mg PO BID tab 11/18/19 [History Last Taken Unknown] glimepiride 2 mg tablet 2 mg PO BID tab 11/18/19 [History Last Taken Unknown] methotrexate sodium 2.5 mg tablet 2.5 mg PO QWEEK 11/18/19 [History Last Taken Unknown] prednisone 10 mg tablet 10 mg PO DAILY PRN 11/18/19 [History Last Taken Unknown] Allergy/AdvReac Type Severity Reaction Status Date / Time No Known Allergies Allergy Verified 10/21/21 10:05 thyroid medication Allergy blurred Uncoded 10/21/21 10:05 vision Family History (Updated 10/21/21 @ 13:[address] Hoep Newberry DO) Other Diabetes Heart disease Hypertension Surgical History H/O: hysterectomy History of bladder surgery History of throat surgery History of tonsillectomy Social History (Updated 10/21/21 @ 13:[address] Hope Newberry DO) Smoking Status: Never smoker alcohol intake: former substance use type: does not use caffeine: Yes Type: coffee ROS <MARILYN Adamson - Last Filed: 10/21/21 13:14> ROS ED ROS Narrative Constitutional: Negative for fever, chills, malaise. Eyes: Negative for visual change. ENT: Negative for sore throat, ear pain, rhinorrhea. CVS: Positive for chest pain. Negative for palpitations, syncope. Respiratory: Positive for shortness of breath. Negative for cough, orthopnea. GI: Negative for abdominal pain, nausea, vomiting, diarrhea, constipation, melena, hematochezia. : Negative for dysuria, hematuria or frequency. Neuro: Negative for headache, motor/sensory dysfunction. Skin: Negative for rash, abscess, or wound. Musc: Negative for joint pain, swelling, trauma. Heme: Negative for easy bruising, bleeding, lymphadenopathy. EXAM <MARILYN Adamson - Last Filed: 10/21/21 13:14> Physical Exam Narrative Exam Narrative: CONST: Patient sitting in no acute distress. EYES: Normal inspection. NECK: Normal inspection. No JVD. RESP: No respiratory distress, CTAB. CVS: Regular rate and rhythm, 3/6 aortic stenosis murmur. ABD: Soft and nontender, no guarding or rebound, nondistended. Back: Normal inspection, no CVA tenderness. SKIN: Color normal, no rash, warm, dry, intact. EXTREMITIES: Normal appearance, no pedal edema. NEURO: Oriented x4. PSYCH: Normal affect. Const Vital Signs: 10/21/21 10:02 10/21/21 10:22 10/21/21 10:41 Temperature 97.8 F 97.8 F Temperature Source Temporal Temporal Pulse Rate 82 82 Respiratory Rate 16 16 Respiratory Effort Short of Breath Respiratory Depth Normal Respiratory Pattern Normal Blood Pressure 146/76 H 146/76 H Blood Pressure Mean 99 99 Pulse Ox 99 99 Oxygen Delivery Method Room Air Room Air <Dr. Bushra Almanzar DO - Last Filed: 10/21/21 15:46> Physical Exam Const Vital Signs: 10/21/21 10:02 10/21/21 10:22 10/21/21 10:41 Temperature 97.8 F 97.8 F Temperature Source Temporal Temporal Pulse Rate 82 82 Respiratory Rate 16 16 Respiratory Effort Short of Breath Respiratory Depth Normal Respiratory Pattern Normal Blood Pressure 146/76 H 146/76 H Blood Pressure Mean 99 99 Pulse Ox 99 99 Oxygen Delivery Method Room Air Room Air [facility] <MARILYN Adamson - Last Filed: 10/21/21 13:14> [facility] Narrative Medical decision making narrative: Patient with multiple cardiac risk factors presents with exertional chest pain and dyspnea. Last night her troponins were elevated in the 150s, proBNP 1100, CTA negative. She left AMA. Today she appears well and nontoxic. Vital signs are within normal limits. On exam aortic stenosis murmur is present, lungs are clear, and there is no lower extremity edema present. EKG is sinus rhythm with no acute ischemic changes. Troponin today is trending down at 127. She was treated with aspirin and IV Lasix. Case was discussed with the hospitalist who agreed to admission and recommended a heparin drip which was initiated. Patient was evaluated by Dr. Ash at bedside who plans for stat echo today. Patient transferred to the floor in stable condition. 1. Chest pain 2. Dyspnea 3. CHF exacerbation 4. NSTEMI 5. Aortic stenosis Lab Data Labs: Laboratory Results - last 24 hr 10/21/21 10/21/21 10/21/21 10:27 10:27 10:27 PT INR APTT Hemoglobin A1c 7.5 H Troponin I High Sens 127 H* Triglycerides 50 Cholesterol 166 LDL Cholesterol 83 VLDL Cholesterol 10 HDL Cholesterol 73 10/21/21 10:36 PT 13.4 INR 1.0 APTT 37.1 H Hemoglobin A1c Troponin I High Sens Triglycerides Cholesterol LDL Cholesterol VLDL Cholesterol HDL Cholesterol Radiography Diagnostic Testing: Clinical Impression(s) from Imaging Studies Chest X-Ray 10/21/21 10:17 IMPRESSION: Normal x-ray examination of the chest. Electronically Signed: David Mendez MD at 10:46 EST , Echocardiogram 10/21/21 11:09 Interpretation Summary The estimated ejection fraction is 45 %. Unable to assess diastolic dysfunction. Hypokinesis of the septum and apex The left atrium is moderately enlarged. Mild mitral valve stenosis. Trivial mitral valve insufficiency. Severe aortic stenosis. Ordering Physician: Argentina Ash MD Referring Physician: Luigi Davalos chi Performed By: Tish Hennessy, RDCS, RVT Initial EKG: Attestation: I personally reviewed and interpreted this EKG as follows: Interpretation: Sinus Rhythm Comments: NSR, LVH <Dr. Bushra Almanzar, DO - Last Filed: 10/21/21 15:46> MDM MDM Narrative Medical decision making narrative: Patient evaluated independently and in conjunction with physician procurement assistant. Agree with note above unless documented otherwise. I was personally present or immediately available for all clinically relevant procedures and performed my own physical exam and review of systems. Patient presents for admission. Patient was seen and evaluated yesterday in the ER but signed out AGAINST MEDICAL ADVICE because she had to go take care of her animals. She was found to have an elevated proBNP and elevated high-sensitivity troponin. She been having 2 to 3 weeks of worsening dyspnea on exertion and some orthopnea. She does have a history of aortic stenosis with a last echocardiogram in 2019. She is given aspirin and IV Lasix. Case was discussed with hospitalist as well as claim adjuster. Patient be admitted and started on a heparin drip for further evaluation. Patient is hemodynamically on stable in the ER. She does not have physical exam findings consistent with fluid overload such as JVD or peripheral edema. She does have diminished breath sounds left worse than right. No crackles appreciated. She had a negative CTA chest ye sterday. Lab Data Labs: Laboratory Results - last 24 hr 10/21/21 10/21/21 10/21/21 10:27 10:27 10:27 PT INR APTT Hemoglobin A1c 7.5 H Troponin I High Sens 127 H* Triglycerides 50 Cholesterol 166 LDL Cholesterol 83 VLDL Cholesterol 10 HDL Cholesterol 73 10/21/21 10:36 PT 13.4 INR 1.0 APTT 37.1 H Hemoglobin A1c Troponin I High Sens Triglycerides Cholesterol LDL Cholesterol VLDL Cholesterol HDL Cholesterol Radiography Diagnostic Testing: Clinical Impression(s) from Imaging Studies Chest X-Ray 10/21/21 10:17 IMPRESSION: Normal x-ray examination of the chest. Electronically Signed: David Mendez MD at 10:46 EST , Echocardiogram 10/21/21 11:09 Interpretation Summary The estimated ejection fraction is 45 %. Unable to assess diastolic dysfunction. Hypokinesis of the septum and apex The left atrium is moderately enlarged. Mild mitral valve stenosis. Trivial mitral valve insufficiency. Severe aortic stenosis. __ Ordering Physician: Argentina Ash MD Referring Physician: Luigi Davalos chi Performed By: Tish Hennessy, RDCS, RVT Discharge Plan Dx/Rx/DC Orders Clinical Impression: Elevated troponin I level, Nonrheumatic aortic (valve) stenosis, Essential (primary) hypertension, DODD (dyspnea on exertion), Acute non-ST elevation myocardial infarction (NSTEMI) Disposition Disposition: Acute Care Hospital [facility] Discharge Date/Time: 10/21/21 12:00
[2021-10-21] MEDS: Aspirin 81 MG TAB.CHEW 324 MG PO (10:31)
[2021-10-21] MEDS: Furosemide 40 MG/4 ML Vial IV (10:32)
[2021-10-21 10:52] LABS: Troponin-I HS 127 pg/mL (3.0-54.0)
--- NOTE | 2021-10-21 10:52 | ED.RN ---
PER MARILYN VEGA, HOLD OFF ON HEPARIN AT THIS TIME.
[2021-10-21 11:03] LABS: Partial Thromboplast Time 37.1 Seconds (24.1-36.2); Prothrombin Time (Protime)PT. 13.4 SECONDS (11.7-14.9)
--- NOTE | 2021-10-21 11:09 | ECHOD_ITS ---
Reason For Study: DYSPNEA/SOB Procedure This was a 2D Doppler, Color Flow transthoracic echocardiogram. Exam performed portable in ED. Left Ventricle Normal LV size. The estimated ejection fraction is 45 %. Unable to assess diastolic dysfunction. Hypokinesis of the septum and apex. Right Ventricle Normal RV size. Normal systolic function. Atria The left atrium is moderately enlarged. Normal right atrium. No doppler evidence for ASD. Mitral Valve There is severe mitral annular calcification. Mild mitral valve stenosis. Trivial mitral valve insufficiency. Tricuspid Valve There is no tricuspid stenosis. Trivial tricuspid valve insufficiency. Unable to estimate RV systolic pressure due to insufficient tricuspid regurgitant envelope. Aortic Valve Severe diffuse aortic valve thickening. Severe aortic stenosis. No aortic valve insufficiency. Pulmonic Valve There is no pulmonic valvular stenosis. No pulmonic valve insufficiency. Great Vessels Normal aortic root. Pericardium/Pleural No pericardial effusion. MMode/2D Measurements & Calculations LVIDd: 4.8 cm IVSd: 1.2 cm LVOT diam: 1.8 cm LVIDs: 3.8 cm LVPWd: 1.3 cm LVOT area: 2.5 cm2 RVDd: 2.8 cm FS: 21.1 % LAV(MOD-bp): 107.3 ml LA A4 area: 27.8 cm2 LA dimension(2D): 4.6 cm LAV(MOD-bp) Indexed: 62.1 ml/m2 LAV(MOD-sp2): 109.9 ml LAV(MOD-sp4): 102.5 ml RA A4 area: 13.1 cm2 Time Measurements MV dec time: 0.36 sec Doppler Measurements & Calculations MV E max lit: 143.1 cm/sec Lat Peak E' Lit: 3.3 cm/sec Med Peak E' Lit: 2.6 cm/sec MV A max lit: 153.6 cm/sec E/E' lat: 43.2 E/E' med: 55.4 MV E/A: 0.93 MV V2 max: 173.5 cm/sec Ao V2 max: 383.3 cm/sec LV V1 max: 76.5 cm/sec MV max P.0 mmHg Ao max P.8 mmHg LV V1 max P.3 mmHg MV V2 mean: 115.7 cm/sec Ao V2 mean: 289.0 cm/sec LV V1 mean P.4 mmHg MV mean P.0 mmHg Ao mean P.7 mmHg LV V1 mean: 57.4 cm/sec MV V2 VTI: 48.1 cm Ao V2 VTI: 88.4 cm LV V1 VTI: 18.0 cm MVA(VTI): 0.92 cm2 NARINDER(I,D): 0.50 cm2 NARINDER(V,D): 0.49 cm2 SV(LVOT): 44.2 ml PA V2 max: 93.2 cm/sec TR max lit: 246.3 cm/sec TR max P.3 mmHg MV P1/2t-pr_phl: 84.5 msec ECHO/Echo Complete Interpretation Summary The estimated ejection fraction is 45 %. Unable to assess diastolic dysfunction. Hypokinesis of the septum and apex The left atrium is moderately enlarged. Mild mitral valve stenosis. Trivial mitral valve insufficiency. Severe aortic stenosis. Ordering Physician: Argentina Ash MD Referring Physician: Luigi Davalos chi Performed By: Tish Hennessy, AIDE, RVT
--- NOTE | 2021-10-21 11:30 | ED.RN ---
PER MARILYN VEGA, PT TO GET ADMITTED NOW AND RECEIVE HEPARIN. PT GETTING ECHO AT THIS MOMENT.
[2021-10-21] MEDS: Heparin Injection (Vial) 5,000 UNIT/ML VIAL 5000 UNIT IV (11:37)
[2021-10-21 12:54] LABS: Troponin-I HS 162 pg/mL (3.0-54.0)
--- NOTE | 2021-10-21 13:05 | HP.PCM.HOS_ITS ---
HPI - General General Date of Admission: 10/21/21 Date of Service: 10/21/21 Chief Complaint: Dyspnea on exertion HPI Narrative ROSARIO ALMODOVAR, is a 75 F who presented to the emergency department [facility] initially on 10/20/2021 but left AMA at that time as she was unable to get anybody to care for her dogs and return to the hospital on 10/21/2021 for admission. As noted she was previously presented last night for abnormal labs. She was sent for an elevated D-dimer as she had been having some dyspnea on exertion and chest pressure. She noted that it had been worsening over the last couple of weeks and had been seen by cardiology on the day of presentation and had blood work done where she was told her D-dimer was elevated and she needed to come to the emergency department for CTA of her chest. She has a known history of diabetes, hyperlipidemia, rheumatoid arthritis, and aortic stenosis. She also complained of some intermittent chest pain with exertion as well. Her work-up included a CTA of her chest which was negative for pulmonary embolus, a CBC which was fairly unremarkable other than a mild stable normocytic anemia and a thrombocytosis, her BMP was unremarkable, but her initial troponin was found to be 159. A BNP was also obtained and found to be 1108. Given her elevated troponin was requested she stay and be admitted however as noted above she needed to go home to get somebody to take care of her dogs. She went home and got things arranged for her puppies and came back to the emergency department for admission today. A repeat troponin was performed prior to admission and was found to be 127. Her EKG has no changes consistent with acute ischemia and her vital signs were stable. I discussed the case with Dr. Ash and he indicated he would see the patient for further evaluation. [facility] Medical History (Updated 10/21/21 @ 13:[address] Hope Newberry, DO) Abnormal EKG Essential (primary) hypertension Hypercholesterolemia Left ventricular diastolic dysfunction Nonrheumatic aortic (valve) stenosis Normocytic anemia Rheumatoid arthritis Syncope (03/2020) Type 2 diabetes mellitus Home Medications lisinopril 1 tab PO DAILY 10/05/18 [History Last Taken Unknown] metformin 1 tab PO BID 10/05/18 [History Last Taken Unknown] atorvastatin 80 mg tablet 80 mg PO DAILY 11/18/19 [History Last Taken Unknown] citalopram 20 mg tablet 20 mg PO DAILY 11/18/19 [History Last Taken Unknown] famotidine 40 mg tablet 40 mg PO DAILY 11/18/19 [History Last Taken Unknown] folic acid 1 mg tablet 1 mg PO BID tab 11/18/19 [History Last Taken Unknown] glimepiride 2 mg tablet 2 mg PO BID tab 11/18/19 [History Last Taken Unknown] methotrexate sodium 2.5 mg tablet 2.5 mg PO QWEEK 11/18/19 [History Last Taken Unknown] prednisone 10 mg tablet 10 mg PO DAILY PRN 11/18/19 [History Last Taken Unknown] Allergy/AdvReac Type Severity Reaction Status Date / Time No Known Allergies Allergy Verified 10/21/21 10:05 thyroid medication Allergy blurred Uncoded 10/21/21 10:05 vision Family History (Updated 10/21/21 @ 13:[address] Hope Newberry DO) Other Diabetes Heart disease Hypertension Surgical History H/O: hysterectomy History of bladder surgery History of throat surgery History of tonsillectomy Social History (Updated 10/21/21 @ 13:[address] Hope Newberry DO) Smoking Status: Never smoker alcohol intake: former substance use type: does not use caffeine: Yes Type: coffee ROS Constitutional Constitutional: Denies anorexia, change in weight, chills, fatigue, fever(s), malaise, night sweats, weakness or other Eyes Eyes: Denies blurry vision, change in eye color, change in vision, discharge from eye(s), double vision, erythema, eye pain, loss of vision or other ENT HEENT: Denies abnormal hearing, dysphagia, ear pain, epistaxis, headache(s), hearing loss, nasal congestion, nasal discharge, post nasal drip, sinus pressure, sore throat or other Cardiovascular Cardiovascular: Reports chest pain and dyspnea on exertion; Denies claudication, edema, lightheadedness, orthopnea, palpitations, paroxysmal nocturnal dyspnea, rapid heart rate, syncope or other Respiratory/Chest Respiratory/Chest: Denies cough, dyspnea, excessive phlegm production, hemoptysis, productive cough, shortness of breath at rest, shortness of breath with exertion, wheezing or other Gastrointestinal Gastrointestinal: Denies abdominal pain, coffee ground emesis, constipation, diarrhea, dyspepsia, hematemesis, hematochezia, loose stools, melena, nausea, vomiting or other Genitourinary Genitourinary: Denies burning urination, difficulty urinating, dysuria, hematuria, nocturia, urinary frequency, urinary hesitancy, urinary incontinence, urinary urgency or other Musculoskeletal Musculoskeletal: Reports joint pain, joint stiffness and joint swelling; Denies arthralgias, back pain, myalgias, neck pain or other Neurologic Neurologic: Denies abnormal gait, abnormal speech, confusion, disequilibrium, dizziness, focal weakness, headache(s), numbness, paresthesias, seizure-like activity, seizures, syncope, tingling, tremor(s) or other Psychiatric Psychiatric: Denies anxiety, depression, homicidal ideation, suicidal ideation or other Endocrine Endocrinology: Denies change in body appearance, cold intolerance, excessive sweating, heat intolerance, polydipsia, polyuria or other Hematologic/Lymphatic Hematologic/Lymphatic: Denies anemia, easy bleeding, easy bruising, lymphadenopathy or other Allergic/Immunologic Allergic/Immunologic: Denies rhinitis, hives, eczemia, asthma or other Vital Signs Vital Signs Vital Signs: 10/21/21 10:02 10/21/21 10:22 10/21/21 10:41 Temperature 97.8 F 97.8 F Temperature Source Temporal Temporal Pulse Rate 82 82 Respiratory Rate 16 16 Respiratory Effort Short of Breath Respiratory Depth Normal Respiratory Pattern Normal Blood Pressure 146/76 H 146/76 H Blood Pressure [BP] Blood Pressure Mean 99 99 Blood Pressure Mean [BP] Blood Pressure Source [BP] Blood Pressure Position [BP] Blood Pressure Location [BP] Pulse Ox 99 99 Oxygen Delivery Method Room Air Room Air 10/21/21 12:32 Temperature 98.4 F Temperature Source Oral Pulse Rate 66 Respiratory Rate 16 Respiratory Effort Respiratory Depth Respiratory Pattern Blood Pressure Blood Pressure [BP] 135/59 H Blood Pressure Mean Blood Pressure Mean [BP] 84 Blood Pressure Source [BP] Monitor Blood Pressure Position [BP] Semi-Fowlers Blood Pressure Location [BP] Right Arm Pulse Ox 100 Oxygen Delivery Method Room Air Weight Weight: 66 kg Body Mass Index (BMI) 25.0 Physical Exam Const alert, oriented x3, no apparent distress, average body habitus, healthy appearing and well nourished Constitutional Narrative: Elderly white female sitting up in bed, communications technologist at bedside, patient appears nontoxic and comfortable General Appearance: cooperative HEENT normocephalic, head/scalp atraumatic, hearing grossly normal bilaterally and moist oral mucous membranes HEENT Narrative: Mallampati is 2, dentures are in place, no thrush Eyes PERRL, EOMs intact bilaterally and conjunctivae normal Eyes Narrative: No scleral icterus Neck no lymphadenopathy, supple and no JVD Neck Narrative: Cardiac murmur that radiates to bilateral carotids, trachea midline, no thyroid enlargement Resp normal respiratory effort, no retractions, no use of accessory muscles and clear to auscultation bilaterally Auscultation: Negative for crackles, rales, rhonchi or wheezes Cardio regular rate, regular rhythm, S1 normal heart sound, no rub, no gallops, no clicks and no JVD; Negative for S2 normal heart sound or no murmurs Cardio Narrative: 4 out of 6 systolic murmur with a very quiet S2 GI normal to inspection, nondistended, normoactive bowel sounds, soft to palpation, non-tender and non-distended; Negative for hepatosplenomegaly Extremity no clubbing, cyanosis or edema Extremity Narrative: Arthritic changes noted Peripheral Pulses: Yes pulses 2+ throughout Skin no rashes or lesions noted, no wounds, skin turgor normal, no jaundice, no petechiae and no mottling Neuro oriented x3, CN's II-XII intact bilaterally, moves all extremities and no focal motor deficits Sensorium / Orientation: awake and alert Speech: speech normal Psych affect normal Results Lab / Micro Data Labs: Laboratory Results - last 24 hr 10/21/21 10:27: Troponin I High Sens 127 H* 10/21/21 10:36: PT 13.4, INR 1.0, APTT 37.1 H 10/21/21 12:15: Troponin I High Sens 162 H* Micro: Microbiology 10/21/21 10:30 Nasal Secretion SARS-CoV-2 Antigen (Rapid) - Final Radiology Impression Chest X-Ray 10/21/21 10:17 IMPRESSION: Normal x-ray examination of the chest. Electronically Signed: David Mendez MD at 10:46 EST , Echocardiogram 10/21/21 11:09 Interpretation Summary The estimated ejection fraction is 45 %. Unable to assess diastolic dysfunction. Hypokinesis of the septum and apex The left atrium is moderately enlarged. Mild mitral valve stenosis. Trivial mitral valve insufficiency. Severe aortic stenosis. Ordering Physician: Argentina Ash MD Referring Physician: Luigi Davalos chi Performed By: Tish Hennessy, RDCS, RVT Assessment & Plan Assessment/Plan (1) DODD (dyspnea on exertion): (2) Elevated troponin I level: (3) D-dimer, elevated: PLAN: Exertional dyspnea -Concerned that this may be an anginal equivalent or related to worsening aortic stenosis -Check echocardiogram -Lasix 40 mg IV push x1 dose -Start aspirin -Continue home statin -Add low-dose Coreg -Continue home ALEJO inhibitor -Check lipids -Check hemoglobin A1c -Left heart catheterization on Saturday -Cardiology consulted and case discussed with Dr. Ash Elevated D-dimer -CTA is negative for PE Troponin elevation -Likely related to NSTEMI unclear if it is type I or type II at this time -Work-up in progress Hyperlipidemia -Continue statin -Check lipids DM-2 -Hold home glimepiride and Metformin -Accu-Cheks before meals and at bedtime -Moderate dose sliding scale Hypertension -Continue home lisinopril -We will start low-dose beta-bismark GERD -Continue home famotidine Rheumatoid arthritis -Continue home methotrexate -Continue home prednisone -Continue home folic acid Depression -Continue home citalopram DVT prophylaxis -Enoxaparin CODE STATUS -Full code as per discussion with the patient in the emergency department Charges/Coding Visit Charges Inpatient E&M: 60720 Init Hosp L3
[2021-10-21 13:39] LABS: Cholesterol 166 mg/dL (200); High Density Lipoprotein 73 mg/dL; Triglycerides 50 mg/dL; Very Low Density Lipoprotein 10 mg/dL (5-40)
[2021-10-21 13:43] LABS: Hemoglobin A1c 7.5 % (3.8-5.6)
--- NOTE | 2021-10-21 13:58 | PCM.CONS.C ---
Assessment & Plan Assessment/Plan (1) DODD (dyspnea on exertion): PLAN: Patient does have severe attic stenosis and LV dysfunction. She does not appear to be significantly volume overloaded at this time. We will schedule her for coronary angiography on Saturday. Agree with Coreg and lisinopril. (2) Nonrheumatic aortic (valve) stenosis: PLAN: Severe by echo. She will need AVR. Coronary angiography on Saturday HPI Consult Data Date of Consult: 10/21/21 HPI Narrative HPI Narrative: ROSARIO ALMODOVAR, is a 75 F who has been having shortness of breath for about 2 weeks. She also admits to exertional chest pain at times. Outpatient blood work was ordered and she was found to have elevated D-dimer. She was advised to come to the emergency room for a CTA which was negative for PE. She did have elevated BNP and a troponin of 160. She had to go home to take care of her dogs and came back to the emergency room as advised. She had a 2D echo which reveals an EF of 45% with septal and apical hypokinesis. She also has severe aortic stenosis. Review of systems: All systems reviewed all else is negative except in HPI [facility] Medical History (Updated 10/21/21 @ 13:[address] Hope Newberry, ) Abnormal EKG Essential (primary) hypertension Hypercholesterolemia Left ventricular diastolic dysfunction Nonrheumatic aortic (valve) stenosis Normocytic anemia Rheumatoid arthritis Syncope (03/2020) Type 2 diabetes mellitus Home Medications lisinopril 1 tab PO DAILY 10/05/18 [History Last Taken Unknown] metformin 1 tab PO BID 10/05/18 [History Last Taken Unknown] atorvastatin 80 mg tablet 80 mg PO DAILY 11/18/19 [History Last Taken Unknown] citalopram 20 mg tablet 20 mg PO DAILY 11/18/19 [History Last Taken Unknown] famotidine 40 mg tablet 40 mg PO DAILY 11/18/19 [History Last Taken Unknown] folic acid 1 mg tablet 1 mg PO BID tab 11/18/19 [History Last Taken Unknown] glimepiride 2 mg tablet 2 mg PO BID tab 11/18/19 [History Last Taken Unknown] methotrexate sodium 2.5 mg tablet 2.5 mg PO QWEEK 11/18/19 [History Last Taken Unknown] prednisone 10 mg tablet 10 mg PO DAILY PRN 11/18/19 [History Last Taken Unknown] Allergy/AdvReac Type Severity Reaction Status Date / Time No Known Allergies Allergy Verified 10/21/21 10:05 thyroid medication Allergy blurred Uncoded 10/21/21 10:05 vision Family History (Updated 10/21/21 @ 13:[address] Hope Newberry DO) Other Diabetes Heart disease Hypertension Surgical History H/O: hysterectomy History of bladder surgery History of throat surgery History of tonsillectomy Social History (Updated 10/21/21 @ 13:[address] Hope Newberry DO) Smoking Status: Never smoker alcohol intake: former substance use type: does not use caffeine: Yes Type: coffee Physical Exam Const alert and oriented x3 Orientation / Consciousness: awake HEENT normocephalic Eyes no scleral icterus Neck supple Resp normal respiratory effort and clear to auscultation bilaterally Cardio regular rate Cardio Narrative: Ejection systolic murmur heard. Soft S2 in the aortic area Extremity no pedal edema Skin no rashes or lesions noted Neuro oriented x3 Psych mental status grossly normal Risk Stratification Risk Stratification Applicable: No Charges/Coding Visit Charges Inpatient E&M: 82900 Init Hosp L2 Objective Data Vital Signs: Vital Signs Temp Pulse Resp BP Pulse Ox 98.4 F 66 16 135/59 H 95 10/21/21 12:32 10/21/21 12:32 10/21/21 12:32 10/21/21 12:32 10/21/21 13:20 Oxygen Delivery Method Room Air Weight: 145 lb 8.081 oz Body Mass Index (BMI) 25.0 Lab / Micro Data Labs: Laboratory Results - last 24 hr 10/21/21 10:27: Troponin I High Sens 127 H* 10/21/21 10:27: Triglycerides 50, Cholesterol 166, LDL Cholesterol 83, VLDL Cholesterol 10, HDL Cholesterol 73 10/21/21 10:27: Hemoglobin A1c 7.5 H 10/21/21 10:36: PT 13.4, INR 1.0, APTT 37.1 H 10/21/21 12:15: Troponin I High Sens 162 H* Micro: Microbiology 10/21/21 10:30 Nasal Secretion SARS-CoV-2 Antigen (Rapid) - Final Cardiology Labs/Tests 10/21/21 10:27: Triglycerides 50, Cholesterol 166, LDL Cholesterol 83, VLDL Cholesterol 10, HDL Cholesterol 73 10/21/21 10:27: Hemoglobin A1c 7.5 H 10/21/21 10:36: PT 13.4, INR 1.0, APTT 37.1 H Rhythm: EKG: ECHO: Stress Test: Cardiac Cath: PCI: CT Surgery: Holter monitor: EPS: PPM: CXR: Chest CT Scan: Radiography Diagnostic Testing: Radiology Impression Chest X-Ray 10/21/21 10:17 IMPRESSION: Normal x-ray examination of the chest. Electronically Signed: David Mendez MD at 10:46 EST , Echocardiogram 10/21/21 11:09 Interpretation Summary The estimated ejection fraction is 45 %. Unable to assess diastolic dysfunction. Hypokinesis of the septum and apex The left atrium is moderately enlarged. Mild mitral valve stenosis. Trivial mitral valve insufficiency. Severe aortic stenosis. Ordering Physician: Argentina Ash MD Referring Physician: Luigi Davalos chi Performed By: Tish Hennessy, RDCS, RVT
[2021-10-21 14:07] LABS: Bedside Glucose 153 mg/dL (70-110)
[2021-10-21 16:40] LABS: Bedside Glucose 286 mg/dL (70-110)
[2021-10-21] MEDS: Insulin Lispro 100 UNIT/ML INSULN.PEN SC (17:01)
[2021-10-21] MEDS: Folic Acid 1 MG Tablet PO (17:02)
[2021-10-21 17:03] LABS: Troponin-I HS 134 pg/mL (3.0-54.0)
[2021-10-21] MEDS: Carvedilol 3.125 MG TABLET PO (20:55)
[2021-10-21] MEDS: Atorvastatin Calcium 80 MG Tablet PO (20:55)
[2021-10-21 21:51] LABS: Bedside Glucose 115 mg/dL (70-110)
[2021-10-22] VITALS (10 sets, daily range): BP systolic 113–128; BP diastolic 50–95; PULSE 58–81; RESP 16–18; TEMP 36.2–36.6; O2SAT 96–98
[2021-10-22] MEDS: Insulin Lispro 100 UNIT/ML INSULN.PEN SC ×3 (06:39→16:41)
[2021-10-22 06:41] LABS: Absolute Lymphocyte Count 1.61 X10^3/uL (0.83-4.51); Basophil# 0.07 X10^3/uL; Basophil% 1.2 % (0-1); Eosinophil# 0.24 X10^3/uL; Eosinophils% 4.3 % (0-5); Hematocrit 34.8 % (37-47); Hemoglobin 11.7 g/dL (12.0-15.0); Lymphocyte # 1.61 X10^3/ul (0.83-4.51); Lymphocyte % 28.6 % (19-41); Mean Corp Hgb Conc 33.6 g/dL (32-36); Mean Corpuscular Hgb 31.9 pg (27.0-32.0); Mean Corpuscular Volume 94.8 fL (81-99); Mean Platelet Vol. 9.9 fl (6.2-12.0); Monocyte# 0.65 X10^3/uL; Monocyte% 11.6 % (0-10); NRBC Flagged by Analyzer 0 % (0-5); Neutrophil # 3.03 X10^3/uL (2.7-7.7); Neutrophil % 53.9 % (47-70); Platelet Count 492 K/mm3 (150-450); RBC Distribution Width SD 51.3 fl (35.1-43.9); Red Blood Count 3.67 M/mm3 (4.2-5.4); White Blood Count 5.6 K/mm3 (4.4-11.0)
[2021-10-22 06:51] LABS: Bedside Glucose 184 mg/dL (70-110)
[2021-10-22 07:20] LABS: ALB/GLOB Ratio 1.1 RATIO (0.9-2.4); AST(SGOT) 22 U/L (15-37); Alanine Aminotransfer ALT/SGPT 39 U/L (13-56); Albumin, Serum 3.5 g/dL (3.2-5.0); Alkaline Phosphatase 86 U/L (45-117); Anion Gap 8 (5-15); BUN 32 mg/dL (7-18); BUN/Creat Ratio 32.1 RATIO (10-20); Calcium,Total 9.1 mg/dL (8.5-10.1); Chloride 103 mmol/L (98-107); EST Glomerular Filtration Rate 57 mL/min (>60); Est Glom Filt Rate - Afr Amer 69 mL/min (>60); Estimated Creatinine Clearance 40.68 ml/min; Globulin 3.3 g/dL (2.2-4.2); Glucose 145 mg/dL (74-106); Magnesium 2.3 mg/dL (1.6-2.6); Phosphorus 4.2 mg/dL (2.5-4.9); Potassium 3.7 mmol/L (3.5-5.1); Protein, Total 6.8 g/dL (6.4-8.2); Sodium Level 138 mmol/L (136-145)
[2021-10-22] MEDS: Famotidine 20 MG Tablet 40 MG PO (07:43)
[2021-10-22] MEDS: Citalopram 20 MG Tablet PO (07:43)
[2021-10-22] MEDS: Folic Acid 1 MG Tablet PO ×2 (07:43→16:42)
[2021-10-22] MEDS: Carvedilol 3.125 MG TABLET PO ×2 (07:43→21:27)
[2021-10-22] MEDS: Lisinopril 5 MG Tablet PO (07:44)
[2021-10-22] MEDS: Enoxaparin 40 MG/0.4 ML Syringe SC (07:44)
[2021-10-22] MEDS: Methotrexate 2.5 MG Tablet 10 MG PO ×2 (07:51→21:27)
[2021-10-22 11:01] LABS: Bedside Glucose 222 mg/dL (70-110)
--- NOTE | 2021-10-22 12:21 | PN_ITS ---
Subjective Subjective No issues overnight. Patient states that she is not having any significant exertional shortness of breath however she is not moved much around her room. She is anxious to go home to her babies. She states she has 4 dogs at home. She is aware the left heart cath will be performed tomorrow morning to ascertain her coronary artery status and to get a better look at the aortic valve. Objective Data Objective Data Vital Signs: Vital Signs Temp Pulse Resp BP Pulse Ox 97.9 F 71 16 128/67 H 96 10/22/21 07:40 10/22/21 12:00 10/22/21 07:40 10/22/21 07:40 10/22/21 07:47 Oxygen Delivery Method Room Air Weight: 66 kg Body Mass Index (BMI) 25.0 Intake & Output: Intake and Output for Last 24 Hours 10/20/21 10/21/21 10/22/21 23:59 23:59 23:59 Intake Total 20.53 / 240.53 595 / 595 Output Total 400 / 700 1200 / 1200 Balance -379.47 / -459.47 -605 / -605 Lab / Micro Data Result Diagrams: 10/22/21 05:08 10/22/21 05:08 Labs: Laboratory Results - last 24 hr 10/21/21 10:27: Triglycerides 50, Cholesterol 166, LDL Cholesterol 83, VLDL Cholesterol 10, HDL Cholesterol 73 10/21/21 10:27: Hemoglobin A1c 7.5 H 10/21/21 12:15: Troponin I High Sens 162 H* 10/21/21 13:09: POC Glucose 153 H 10/21/21 16:15: Troponin I High Sens 134 H* 10/21/21 16:22: POC Glucose 286 H 10/21/21 20:49: POC Glucose 115 H 10/22/21 05:08: WBC 5.6, RBC 3.67 L, Hgb 11.7 L, Hct 34.8 L, MCV 94.8, MCH 31.9, MCHC 33.6, RDW Std Deviation 51.3 H, RDW Coeff of [place] 15.0 H, Plt Count 492 H, MPV 9.9, Immature Gran % (Auto) 0.400, Neut % (Auto) 53.9, Lymph % (Auto) 28.6, [place] % (Auto) 11.6 H, Eos % (Auto) 4.3, Baso % (Auto) 1.2 H, Absolute Neuts (auto) 3.0, Absolute Lymphs (auto) 1.61, Nucleated RBC % 0 10/22/21 05:08: Sodium 138, Potassium 3.7, Chloride 103, Carbon Dioxide 27.0, Anion Gap 8, BUN 32 H, Creatinine 1.00, Estim Creat Clear Calc 40.68, Est GFR (MDRD) Af Amer 69, Est GFR (MDRD) Non-Af 57 L, BUN/Creatinine Ratio 32.1 H, Glucose 145 H, Calcium 9.1, Phosphorus 4.2, Magnesium 2.3, Total Bilirubin 0.30, AST 22, ALT 39, Alkaline Phosphatase 86, Total Protein 6.8, Albumin 3.5, Globulin 3.3, Albumin/Globulin Ratio 1.1 10/22/21 06:37: POC Glucose 184 H 10/22/21 10:54: POC Glucose 222 H Micro: Microbiology 10/21/21 10:30 Nasal Secretion SARS-CoV-2 Antigen (Rapid) - Final Radiography Diagnostic Testing: Radiology Impression Echocardiogram 10/21/21 11:09 Interpretation Summary The estimated ejection fraction is 45 %. Unable to assess diastolic dysfunction. Hypokinesis of the septum and apex The left atrium is moderately enlarged. Mild mitral valve stenosis. Trivial mitral valve insufficiency. Severe aortic stenosis. Ordering Physician: Argentina Ash MD Referring Physician: Luigi Davalos chi Performed By: Tish Hennessy, AIDE, RVT Physical Exam Const alert, oriented x3, no apparent distress, average body habitus, healthy appearing and well nourished Constitutional Narrative: Elderly white female sitting up on the edge of the bed, on her cell phone,, patient appears nontoxic and comfortable General Appearance: cooperative HEENT normocephalic, head/scalp atraumatic, hearing grossly normal bilaterally and moist oral mucous membranes Eyes conjunctivae normal Resp normal respiratory effort, normal air movement, no retractions, no use of accessory muscles and clear to auscultation bilaterally Auscultation: Negative for crackles, rales, rhonchi or wheezes Cardio regular rate, regular rhythm, S1 normal heart sound, no rub, no gallops, no clicks and no JVD; Negative for S2 normal heart sound or no murmurs Cardio Narrative: 4 out of 6 systolic murmur with a very quiet S2 GI normal to inspection, nondistended, normoactive bowel sounds, soft to palpation, non-tender and non-distended; Negative for hepatosplenomegaly Extremity no clubbing, cyanosis or edema Extremity Narrative: Arthritic changes noted Skin no rashes or lesions noted, no wounds, skin turgor normal, no jaundice, no petechiae and no mottling Neuro oriented x3, CN's II-XII intact bilaterally, moves all extremities and no focal motor deficits Sensorium / Orientation: awake and alert Speech: speech normal Psych Mood & Affect: anxious Assessment & Plan Assessment/Plan (1) DODD (dyspnea on exertion): (2) Elevated troponin I level: (3) D-dimer, elevated: PLAN: Exertional dyspnea -Concerned that this may be an anginal equivalent or related to worsening aortic stenosis -Echocardiogram shows an EF of 45% with hypokinesis of the septum and apex, left atrial enlargement that is moderate and severe aortic stenosis -Lasix 40 mg IV push x1 dose -Continue aspirin -Continue home statin -Continue low-dose Coreg -Continue home ALEJO inhibitor -Lipids are well controlled -Hemoglobin A1c is slightly elevated at 7.5 -Left heart catheterization on Saturday -Cardiology following and case discussed with Dr. Ash on the day of admission Elevated D-dimer -CTA is negative for PE Troponin elevation -Likely related to NSTEMI unclear if it is type I or type II at this time -Work-up in progress -Left heart cath tomorrow -Lipids are well controlled with an LDL of 83 and HDL of 73 total cholesterol 166 -A1c is elevated at 7.5 Hyperlipidemia -Continue statin -Check lipids [id number] -A1c 7.5 -Hold home glimepiride and Metformin -Accu-Cheks before meals and at bedtime -Moderate dose sliding scale Hypertension -Continue home lisinopril -Continue low-dose Coreg with depressed EF GERD -Continue home famotidine Rheumatoid arthritis -Continue home methotrexate -Continue home prednisone -Continue home folic acid Depression -Continue home citalopram DVT prophylaxis -Enoxaparin CODE STATUS -Full code as per discussion with the patient in the emergency department Charges/Coding Visit Charges Inpatient E&M: 42827 Subs Hosp L2
--- NOTE | 2021-10-22 14:42 | PN.CARD_ITS ---
Subjective Subjective Doing well. Objective Data Vital Signs: Vital Signs Temp Pulse Resp BP Pulse Ox 97.9 F 73 18 114/52 L 97 10/22/21 13:30 10/22/21 13:30 10/22/21 13:30 10/22/21 13:30 10/22/21 13:30 Oxygen Delivery Method Room Air Weight: 145 lb 8.081 oz Body Mass Index (BMI) 25.0 Intake & Output: Intake and Output for Last 24 Hours 10/20/21 10/21/21 10/22/21 23:59 23:59 23:59 Intake Total 20.53 / 240.53 595 / 595 Output Total 400 / 700 1200 / 1200 Balance -379.47 / -459.47 -605 / -605 Lab / Micro Data Result Diagrams: 10/22/21 05:08 10/22/21 05:08 Labs: Laboratory Results - last 24 hr 10/21/21 16:15: Troponin I High Sens 134 H* 10/21/21 16:22: POC Glucose 286 H 10/21/21 20:49: POC Glucose 115 H 10/22/21 05:08: WBC 5.6, RBC 3.67 L, Hgb 11.7 L, Hct 34.8 L, MCV 94.8, MCH 31.9, MCHC 33.6, RDW Std Deviation 51.3 H, RDW Coeff of Jolynn 15.0 H, Plt Count 492 H, MPV 9.9, Immature Gran % (Auto) 0.400, Neut % (Auto) 53.9, Lymph % (Auto) 28.6, [place] % (Auto) 11.6 H, Eos % (Auto) 4.3, Baso % (Auto) 1.2 H, Absolute Neuts (auto) 3.0, Absolute Lymphs (auto) 1.61, Nucleated RBC % 0 10/22/21 05:08: Sodium 138, Potassium 3.7, Chloride 103, Carbon Dioxide 27.0, Anion Gap 8, BUN 32 H, Creatinine 1.00, Estim Creat Clear Calc 40.68, Est GFR (MDRD) Af Amer 69, Est GFR (MDRD) Non-Af 57 L, BUN/Creatinine Ratio 32.1 H, Glucose 145 H, Calcium 9.1, Phosphorus 4.2, Magnesium 2.3, Total Bilirubin 0.30, AST 22, ALT 39, Alkaline Phosphatase 86, Total Protein 6.8, Albumin 3.5, Globulin 3.3, Albumin/Globulin Ratio 1.1 10/22/21 06:37: POC Glucose 184 H 10/22/21 10:54: POC Glucose 222 H Micro: Microbiology 10/21/21 10:30 Nasal Secretion SARS-CoV-2 Antigen (Rapid) - Final Cardiology Labs/Tests 10/22/21 05:08: WBC 5.6, RBC 3.67 L, Hgb 11.7 L, Hct 34.8 L, MCV 94.8, MCH 31.9, MCHC 33.6, Plt Count 492 H, MPV 9.9, Immature Gran % (Auto) 0.400, Neut % (Auto) 53.9, Lymph % (Auto) 28.6, [place] % (Auto) 11.6 H, Eos % (Auto) 4.3, Baso % (Auto) 1.2 H, Absolute Neuts (auto) 3.0, Nucleated RBC % 0 10/22/21 05:08: Sodium 138, Potassium 3.7, Chloride 103, Carbon Dioxide 27.0, Anion Gap 8, BUN 32 H, Creatinine 1.00, Est GFR (MDRD) Af Amer 69, Est GFR (MDRD) Non-Af 57 L, BUN/Creatinine Ratio 32.1 H, Glucose 145 H, Calcium 9.1, Phosphorus 4.2, Magnesium 2.3, Total Bilirubin 0.30 Rhythm: EKG: ECHO: Stress Test: Cardiac Cath: PCI: CT Surgery: Holter monitor: EPS: PPM: CXR: Chest CT Scan: Physical Exam Const alert and oriented x3 Orientation / Consciousness: awake HEENT normocephalic Eyes no scleral icterus Neck supple Resp normal respiratory effort Cardio regular rate Skin no rashes or lesions noted Psych mental status grossly normal Assessment & Plan Assessment/Plan (1) DODD (dyspnea on exertion): PLAN: Patient does have severe aortic stenosis and LV dysfunction. She does not appear to be significantly volume overloaded at this time. We will schedule her for coronary angiography on Saturday. Agree with Coreg and lisinopril. (2) Aortic stenosis: QUALIFIERS: Cardiac valve disease etiology: nonrheumatic Qualified Code(s): I35.0 - Nonrheumatic aortic (valve) stenosis PLAN: Severe aortic stenosis. Coronary angiography tomorrow. If she has significant CAD that appears unstable then she may need transfer to a facility with CT surgery capability as an inpatient. If her CAD appears to be stable or if she does not have any significant CAD then she could potentially be discharged home and referred for AVR plus or minus CABG as an outpatient Charges/Coding Visit Charges Inpatient E&M: 26761 Subs Hosp L2
[2021-10-22 16:55] LABS: Bedside Glucose 152 mg/dL (70-110)
[2021-10-22] MEDS: Atorvastatin Calcium 80 MG Tablet PO (21:27)
[2021-10-22] MEDS: 0.9% Saline Lock 10 ML Syringe IV ×2 (21:28→22:18)
[2021-10-22 22:15] LABS: Bedside Glucose 202 mg/dL (70-110)
[2021-10-22] MEDS: Aspirin 81 MG TAB.CHEW PO (22:25)
[2021-10-23] VITALS (22 sets, daily range): BP systolic 93–128; BP diastolic 50–96; PULSE 58–76; RESP 16–20; TEMP 36.6–37.1; O2SAT 95–99
--- NOTE | 2021-10-23 05:00 | EKG12_ITS ---
Test Reason : SOB Blood Pressure : / mmHG Vent. Rate : 086 BPM Atrial Rate : 086 BPM P-R Int : 142 ms QRS Dur : 096 ms QT Int : 410 ms P-R-T Axes : 052 -29 139 degrees QTc Int : 490 ms Normal sinus rhythm Left ventricular hypertrophy with repolarization abnormality Abnormal ECG Confirmed by LUCA BHATTI, ANGELES ([id number]), editor school photograph STEPH VILLANUEVA ([id number]) on 10/25/2021 12:37:10 P M Referred By: SANTIAGO Confirmed By:XIN SEGOVIA MD
[2021-10-23] MEDS: Aspirin 81 MG TAB.CHEW PO (05:19)
[2021-10-23] MEDS: Lisinopril 5 MG Tablet PO (05:19)
[2021-10-23] MEDS: Carvedilol 3.125 MG TABLET PO ×2 (05:19→20:01)
[2021-10-23] MEDS: 0.9% Normal Saline 1,000 ML 15 ML IV (05:20)
[2021-10-23 05:26] LABS: Bedside Glucose 169 mg/dL (70-110)
--- NOTE | 2021-10-23 08:01 | PN.HOSP_ITS ---
Subjective Subjective No acute chest pain or shortness of breath today. panel monitor shows sinus rhythm. Patient had cardiac cath today that shows multivessel coronary artery disease and severe aortic stenosis. Objective Data Objective Data Vital Signs: Vital Signs Temp Pulse Resp BP Pulse Ox 97.8 F 58 L 18 110/50 L 98 10/23/21 05:15 10/23/21 07:32 10/23/21 05:15 10/23/21 05:15 10/23/21 05:15 Oxygen Delivery Method Room Air Weight: 145 lb 8.081 oz Body Mass Index (BMI) 25.0 Intake & Output: Intake and Output for Last 24 Hours 10/21/21 10/22/21 10/23/21 23:59 23:59 23:59 Intake Total 20.53 / 240.53 870 / 1090 220 / 220 Output Total 400 / 700 1200 / 1700 500 / 500 Balance -379.47 / -459.47 -330 / -610 -280 / -280 Lab / Micro Data Result Diagrams: 10/22/21 05:08 10/22/21 05:08 Labs: Laboratory Results - last 24 hr 10/22/21 10:54: POC Glucose 222 H 10/22/21 16:40: POC Glucose 152 H 10/22/21 21:18: POC Glucose 202 H 10/23/21 05:17: POC Glucose 169 H Micro: Microbiology 10/21/21 10:30 Nasal Secretion SARS-CoV-2 Antigen (Rapid) - Final Physical Exam Narrative Physical exam General: Alert, Oriented x3, Cooperative HEENT: Atraumatic, PERRLA, EOMI, Normocephalic Oral: No Gingival or Mucosal Lesions/ Ulcerations Neck: Supple, No JVD, Negative Carotid Bruits Lungs: Air entry equal in bilateral lung bases. No crepitation/rhonchi Cardiovascular: Sinus rhythm on monitoring and evaluation advisor regular rate, Regular Rhythm, Normal S1, Normal S2, grade 5/6 ejection systolic murmur over right second ICS with radiation to carotids, cardiac apex and axilla Abdomen: Bowel Sounds Present, Soft, Non Tender, Non-Distended : No renal angle tenderness. No suprapubic tenderness. Extremities: No edema, Capillary Refill Less than 3 Seconds Skin: No rashes, No breakdown Musculoskeletal: No Tenderness to Palpation of Joints or Extremities Neurological: Cranial nerves II-XII grossly intact, DTR 2+/4 and Symmetrical, Neuro grossly intact Psych/Mental Status: Normal Affect, Appropriate. Assessment & Plan Assessment/Plan (1) DODD (dyspnea on exertion): (2) Elevated troponin I level: (3) D-dimer, elevated: PLAN: 1. Exertional dyspnea due to severe and worsening aortic stenosis, ACS, multivessel coronary artery disease, chronic HFrEF: Patient is being admitted in PCU. No acute chest pain or shortness of breath today. 2D echo shows EF 45% wi th hypokinesis of septum and apex, LA moderately enlarged, mild mitral stenosis, trivial MR and severe aortic stenosis. Chest x-ray normal. Cardiac cath, C left main distal 50%, mid LAD 299% stenosis, proximal circumflex 85%, OM1 ostial 85% distal LAD bifurcation 75%, ramus 25% stenosis, proximal RCA eccentric 25% stenosis. Moderate AV calcification, severe mitral valve annular calcification. I discussed with the critical care nurse specialist. Recommended surgery consult for coronary revascularization and aortic valve replacement. I talked to [facility] transfer line and critical care nurse specialist talked to Dr. Ash cardiothoracic surgeon. Today Dr. Cardenas, critical care nurse specialist on-call. There are 8 patients on the waiting list. Hopefully can transfer tomorrow. Continue medical management for now including aspirin, high intensity statin, low-dose Coreg, ALEJO inhibitor. Fasting profile lipid reviewed, LDL 83, HDL 73. Troponin high. 2. Diabetes mellitus type 2: -Hemoglobin A1c is elevated at 7.5. On Accu-Chek before meals and at bedtime. On moderate sliding scale insulin. Glucose is elevated in the range of 150 to 200 mg/dL. On her home medication patient is on prednisone 10 mg daily as neede d, unclear its indication. Discontinued. 3. Acute coronary syndrome/non-STEMI: Patient has exertional dyspnea at time of admission which has improved. High-sensitivity troponin elevated. Rest as mentioned above. Elevated D-dimer. CTA is negative for PE 4. Dyslipidemia: High intensity statin admission 5. Hypertension -Continue home lisinopril for HFrEF GERD -Continue home famotidine Rheumatoid arthritis -Continue home methotrexate. Prednisone 10 mg daily as needed, discontinued in preparation for surgery -Continue home folic acid Depression -Continue home citalopram DVT prophylaxis -Enoxaparin CODE STATUS -Full code Total time of the visit including total time spent in counseling or coordination of care, (more than 50% of the total time, spent in obtaining medical inform ation from nurses and other ancillary care providers,explaining to the patient about labs, imaging, diagnosis and management), discussion with the move coordinator, critical care nurse specialist Dr. Dunbar, discussion with the patient and her sister in the room, review of labs, echo and imaging is 40 minutes. Charges/Coding Visit Charges Inpatient E&M: 46296 Subs Hosp L3
--- NOTE | 2021-10-23 08:50 | NURSING ---
Patient left unit to the crime lab analyst
--- NOTE | 2021-10-23 09:41 | CASEMGMT ---
According to the [facility] website, the following are in-network tertiary facilities: [facility], [place], [facility], [place], [facility], [facility], [place], and . Kimberly COSTA CM
[2021-10-23] MEDS: 0.9% Normal Saline 1,000 ML 75 ML IV (10:45)
--- NOTE | 2021-10-23 10:54 | CL.D_ITS ---
Patient Name: ROSARIO ALMODOVAR Study Date: 10/23/2021 Performing: Jasper Dunbar MD Ht: 64 inches 163 cm : 1945 Wt: 145.7 lbs 66 kg Age: 75 Gender: female BSA: 1.71 PROCEDURE(S) PERFORMED [id number])C/COR CLINICAL PROFILE AND INDICATIONS Indications: ACS > 24 hrs, Suspected CAD, Valvular Disease, Pre-Operative Evaluation Heart Failure: None Stress/Imaging Stress/Image Study Performed: No Angina Classification Anginal Classification w/in 2 Weeks: CCS III CAD Presentations: Non-STEMI. CONCLUSIONS Ewiiaapaayp Multivessel CAD RECOMMENDATIONS Risk factor modification Medical therapy Surgery consult for coronary revascularization Surgery consult for Valve Replacement surgery DESCRIPTION OF PROCEDURE The patient arrived to the procedure lab. The risks and benefits of the procedure as well as a full d escription of our services here and current unavailability of surgical backup were fully explained to the patient and/or their significant other prior to the catheterization. The Timeout was completed, verifying the correct patient and procedure. The patient's procedural site was prepped and draped in the usual fashion. Local anesthetic was given subcutaneously to right radial region with Lidocaine 2% . Using a modified Seldinger technique, arterial access was obtained via the right radial artery, a 6 Fr sheath was inserted. Left Coronary Artery selective angiography was performed in multiple views u sing a 5 Fr. 4.0 [place] catheter. Right Coronary Artery selective angiography was then performed in mu ltiple views using a 5 Fr. 4.0 [place] catheter.The arterial sheath was pulled and a TR Band was applie d for hemostasis w/10ml air CORONARY ANGIOGRAPHY DOMINANCE: Right Dominant LEFT HEART ASSESSMENT Left Ventricular Ejection Fraction: Not assessed LEFT MAIN: Mild calcification, distal: 50 % Stenosis LEFT ANTERIOR DESCENDING ARTERY: PROX LAD: Moderate calcification MID LAD: at the level of DX2: 99 % Stenosis CIRCUMFLEX ARTERY: PROX CIRC: at the level of OM1: 85 % Stenosis OM 1: Ostial - 85 % Stenosis, Distal - at bifurcation: 75 % Stenosis RAMUS: proximal: 25 % Stenosis RIGHT CORONARY ARTERY: PROX RCA: eccentric: 25 % Stenosis VALVE FINDINGS: Aortic Valve Calcification - moderate Mitral Valve Annular Calcification Severe COMPLICATIONS No Complications PROCEDURE MEDICATIONS Versed 1 mg IV Fentanyl 50 mcg IV Oxygen: 2 L/min via nasal cannula Heparin given IA 10/23/2021 09:56:02 Verapamil 2.5mg, Ntg 100mcgs, 3000 units of Heparin given IA 10/23/2021 09:56:02 IV Bolus: .9 NaCl 200 ml total 10/23/2021 09:37:04 SUMMARY OF HEMODYNAMIC DATA Time AIR REST ECG 09:03:13 Art 106/43 (66) 09:34:00 AO 90/45 (63) SA 09:58:49 AO 100/44 (64) 10:07:41 AO 119/51 (78) 10:11:56 Signed By Jasper Dunbar MD On 10/23/2021 10:53:46 Jasper Dunbar MD
[2021-10-23] MEDS: Famotidine 20 MG Tablet 40 MG PO (11:23)
[2021-10-23] MEDS: Citalopram 20 MG Tablet PO (11:23)
[2021-10-23] MEDS: Insulin Lispro 100 UNIT/ML INSULN.PEN SC (11:44)
[2021-10-23 11:51] LABS: Bedside Glucose 173 mg/dL (70-110)
--- NOTE | 2021-10-23 13:01 | PN.CARD_ITS ---
Subjective Subjective The patient underwent diagnostic cardiac catheterization earlier this day. She appears to be without obvious adverse event. Objective Data Vital Signs: Vital Signs Temp Pulse Resp BP Pulse Ox 97.9 F 65 18 123/96 H 97 10/23/21 10:30 10/23/21 12:45 10/23/21 12:45 10/23/21 12:45 10/23/21 12:45 Oxygen Delivery Method Room Air Weight: 145 lb 8.081 oz Body Mass Index (BMI) 25.0 Intake & Output: Intake and Output for Last 24 Hours 10/21/21 10/22/21 10/23/21 23:59 23:59 23:59 Intake Total 20.53 / 240.53 870 / 1090 249.5 / 249.5 Output Total 400 / 700 1200 / 1700 500 / 500 Balance -379.47 / -459.47 -330 / -610 -250.5 / -250.5 Lab / Micro Data Result Diagrams: 10/22/21 05:08 10/22/21 05:08 Labs: Laboratory Results - last 24 hr 10/22/21 16:40: POC Glucose 152 H 10/22/21 21:18: POC Glucose 202 H 10/23/21 05:17: POC Glucose 169 H 10/23/21 11:42: POC Glucose 173 H Cardiology Labs/Tests Rhythm: Sinus rhythm EKG: Sinus rhythm; left axis deviation; LVH; ST and T wave abnormality-consider myocardial ischemia-lateral ECHO: Interpretation Summary The estimated ejection fraction is 45 %. Unable to assess diastolic dysfunction. Hypokinesis of the septum and apex The left atrium is moderately enlarged. Mild mitral valve stenosis. Trivial mitral valve insufficiency. Severe aortic stenosis. Cardiac Cath: CONCLUSIONS [place] Multivessel CAD RECOMMENDATIONS Risk factor modification Medical therapy Surgery consult for coronary revascularization Surgery consult for Valve Replacement surgery DESCRIPTION OF PROCEDURE The patient arrived to the procedure lab. The risks and benefits of the procedure as well as a full description of our services here and current unavailability of surgical backup were fully explained to the patient and/or their significant other prior to the catheterization. The Timeout was completed, verifying the correct patient and procedure. The patient's procedural site was prepped and draped in the usual fashion. Local anesthetic was given subcutaneously to right radial region with Lidocaine 2%. Using a modified Seldinger technique, arterial access was obtained via the right radial artery, a 6Fr sheath was inserted. Left Coronary Artery selective angiography was performed in multiple views using a 5 Fr. 4.0 [place] catheter. Right Coronary Artery selective angiography was then performed in multiple views using a 5 Fr. 4.0 [place] catheter.The arterial sheath was pulled and a TR Band was applied for hemostasis w/10ml air CORONARY ANGIOGRAPHY DOMINANCE: Right Dominant LEFT HEART ASSESSMENT Left Ventricular Ejection Fraction: Not assessed LEFT MAIN: Mild calcification, distal: 50 % Stenosis LEFT ANTERIOR DESCENDING ARTERY: PROX LAD: Moderate calcification MID LAD: at the level of DX2: 99 % Stenosis CIRCUMFLEX ARTERY: PROX CIRC: at the level of OM1: 85 % Stenosis OM 1: Ostial - 85 % Stenosis, Distal - at bifurcation: 75 % Stenosis RAMUS: proximal: 25 % Stenosis RIGHT CORONARY ARTERY: PROX RCA: eccentric: 25 % Stenosis VALVE FINDINGS: Aortic Valve Calcification - moderate Mitral Valve Annular Calcification Severe Physical Exam Const alert, oriented x3 and no apparent distress Orientation / Consciousness: awake HEENT normocephalic, head/scalp atraumatic and hearing grossly normal bilaterally Eyes PERRL, EOMs intact bilaterally and conjunctivae normal Neck full ROM, supple and no JVD Resp clear to auscultation bilaterally Cardio regular rate, regular rhythm and S1 normal heart sound Heart Sounds: murmur systolic III/ crescendo left sternal border, LVOT and sternal notch and abnormal sounds diminished A2 GI normal to inspection, nondistended, normoactive bowel sounds Extremity no pedal edema Peripheral Pulses: Yes radial pulses present right (No obvious bruits: No obvious hematoma) 2+ Skin no rashes or lesions noted Psych mental status grossly normal Assessment & Plan Assessment/Plan (1) Acute non-ST elevation myocardial infarction (NSTEMI): PLAN: The patient was evaluated in cardiovascular consultation by Dr. Ash. He recommended the patient undergo further evaluation of her coronary anatomy. This was completed earlier this day with diagnostic cardiac catheterization. This demonstrated multivessel CAD. The present time the patient should continue medical therapy and be considered for transfer to a tertiary care center for surgical based revascularization therapy. (2) Atherosclerotic heart disease of [place] coronary artery without angina pectoris: PLAN: As noted above the patient has been found to have multivessel CAD. She will continue medical management. She should be considered to be transferred to a tertiary care center for further surgical based revascularization therapy. (3) Aortic stenosis: QUALIFIERS: Cardiac valve disease etiology: nonrheumatic Qualified Code(s): I35.0 - Nonrheumatic aortic (valve) stenosis PLAN: The patient does have, by echocardiogram, findings compatible with severe aortic valve stenosis. This definitely needs to be taken into consideration with her CT surgery ev aluation to be considered for aortic valve replacement. (4) Mitral valve stenosis: PLAN: The patient appears to have significant mitral annular calcification and per her echocardiogram report of mild mitral valve stenosis. This can be reviewed by CT surgery at the time of her CT surgery consultation. (5) Hypercholesterolemia: PLAN: The patient should continue risk factor evaluation and care. (6) Essential (primary) hypertension: PLAN: The patient's blood pressure does need to be monitored with adjustment of medications taking into consideration her severe aortic valve stenosis. Addt'l Comments The patient's case has been discussed and reviewed with the patient and Dr. Vallejo. This note was generated using a voice recognition system and there may be incorrect words, spelling or punctuation that were not noted when reviewing the office note prior to saving.
[2021-10-23 17:06] LABS: Bedside Glucose 148 mg/dL (70-110)
[2021-10-23] MEDS: Folic Acid 1 MG Tablet PO (17:17)
--- NOTE | 2021-10-23 17:31 | PCM.DC.SUM ---
Providers Date of Admission: 10/21/21 Date of Discharge: 10/23/21 Primary Care Physician: Dr. Luigi Davalos MD Consultations 10/21/21 12:37 Consult: Cardiology Routine Consulting Provider: Sarabjit Ash Reason for Consult: NSTEMI EMERGENT Consult: No MD Notified: Yes Date Notified: 10/21/21 Time Notified: 11:23 Method of Notification: Verbal Reason For Visit: NSTEMI Diagnosis Discharge Diagnosis (1) DODD (dyspnea on exertion): Status: Acute Code(s): R06.00 - Dyspnea, unspecified (2) Elevated troponin I level: Status: Acute Code(s): R77.8 - Other specified abnormalities of plasma proteins (3) D-dimer, elevated: Status: Acute Code(s): R79.89 - Other specified abnormal findings of blood chemistry Medications at Discharge Home Medications lisinopril 1 tab PO DAILY 10/05/18 metformin 1 tab PO BID 10/05/18 atorvastatin 80 mg tablet 80 mg PO DAILY 11/18/19 citalopram 20 mg tablet 20 mg PO DAILY 11/18/19 famotidine 40 mg tablet 40 mg PO DAILY 11/18/19 folic acid 1 mg tablet 1 mg PO BID tab 11/18/19 glimepiride 2 mg tablet 2 mg PO BID tab 11/18/19 methotrexate sodium 2.5 mg tablet 2.5 mg PO QWEEK 11/18/19 prednisone 10 mg tablet 10 mg PO DAILY PRN 11/18/19 Hospital Course Summary of Care Provided Hospital Course: This 75-year-old female was admitted through ER for dyspnea on exertion, chest pressure and elevated D-dimer. CTA chest negative for PE. She has further admitted in PCU. Hospital course as follows 1. Exertional dyspnea due to severe and worsening aortic stenosis, ACS, multivessel coronary artery disease, chronic HFrEF: Patient is being admitted in PCU. No acute chest pain or shortness of breath on the day of discharge, resolved. 2D echo shows EF 45% with hypokinesis of septum and apex, LA moderately enlarged, mild mitral stenosis, trivial MR and severe aortic stenosis. Chest x-ray normal. Cardiac cath, [facility] left main distal 50%, mid LAD 299% stenosis, proximal circumflex 85%, OM1 ostial 85% distal LAD bifurcation 75%, ramus 25% stenosis, proximal RCA eccentric 25% stenosis. Moderate AV calcification, severe mitral valve annular calcification. I discussed with the manager materials management. Recommended surgery consult for coronary revascularization and aortic valve replacement. I talked to [facility] transfer line and manager materials management talked to Dr. Ash cardiothoracic surgeon. The patient was transferred in the care of Dr. Cardenas, manager materials management on-call. Continue medical management for now including aspirin, high intensity statin, low-dose Coreg, ALEJO inhibitor. Fasting profile lipid reviewed, LDL 83, HDL 73. Troponin high. 2. Diabetes mellitus type 2: -Hemoglobin A1c is elevated at 7.5. On Accu-Chek before meals and at bedtime. On moderate sliding scale insulin. Glucose is elevated in the range of 150 to 200 mg/dL. On her home medication patient is on prednisone 10 mg daily as needed, unclear its indication. Discontinued. 3. Acute coronary syndrome/non-STEMI: Patient has exertional dyspnea at time of admission which has improved. High-sensitivity troponin elevated. Rest as mentioned above. Elevated D-dimer. CTA is negative for PE 4. Dyslipidemia: High intensity statin admission 5. Hypertension -Continue home lisinopril for HFrEF GERD -Continue home famotidine Rheumatoid arthritis -Continue home methotrexate. Prednisone 10 mg daily as needed, discontinued in preparation for surgery -Continue home folic acid Depression -Continue home citalopram DVT prophylaxis -Enoxaparin CODE STATUS -Full code Total time of the visit including total time spent in counseling or coordination of care, (more than 50% of the total time, spent in obtaining medical information from nurses and other ancillary care providers,explaining to the patient about labs, imaging, diagnosis and management), discussion with the transplanter orchid, manager materials management Dr. Dunbar, discussion with the patient and her sister in the room, review of labs, echo and imaging is 40 minutes. Physical Exam Narrative Patient was transferred to [facility] yesterday. Please see progress note of 10/23. Weight / BMI Weight Weight: 145 lb 8.081 oz Body Mass Index (BMI) 25.0 ABG / Lab / Microbiology Data Result Diagrams: 10/22/21 05:08 10/22/21 05:08 Laboratory: Laboratory Results - last 24 hr 10/22/21 21:18: POC Glucose 202 H 10/23/21 05:17: POC Glucose 169 H 10/23/21 11:42: POC Glucose 173 H 10/23/21 17:03: POC Glucose 148 H Microbiology: Microbiology 10/21/21 10:30 Nasal Secretion SARS-CoV-2 Antigen (Rapid) - Final Meaningful Use Info Meaningful Use Diagnoses (Choose all that apply): None applicable Discharge Plan Admission Admit Date/Time: 10/21/21 11:18 Attending Provider: Jose Vallejo Primary Care Provider: Luigi Davalos Chi Consulting Providers: Sarabjit Ash Discharge Orders/Prescriptions Prescriptions: No Action prednisone 10 mg tablet 10 mg PO DAILY PRN (Reason: Inflammation) RF: 0 glimepiride 2 mg tablet 2 mg PO BID RF: 0 folic acid 1 mg tablet 1 mg PO BID RF: 0 methotrexate sodium 2.5 mg tablet 2.5 mg PO QWEEK RF: 0 citalopram 20 mg tablet 20 mg PO DAILY RF: 0 atorvastatin 80 mg tablet 80 mg PO DAILY RF: 0 famotidine 40 mg tablet 40 mg PO DAILY RF: 0 metformin 1,000 MG tablet 1 tab PO BID RF: 0 lisinopril 5 MG tablet 1 tab PO DAILY RF: 0 Referrals / Follow Up: Luigi Davalos Chi, MD [Primary Care Provider] - Disposition Discharge Orders: Discharge Patient (Routine); Ordered 10/23/21 Ordered By: Dr. Jose Vallejo Charges/Coding Addendum Addendum: Please cancel the billing charge of progress note of the same date 10/23. Visit Charges Inpatient E&M: [id number] Disch Hosp
[2021-10-23] MEDS: Atorvastatin Calcium 80 MG Tablet PO (20:01)
== END 2021-10-23 20:40 | disposition other institution (70) | DRG 281 ==
LOC: ED 10:32 → PCU 11:29
PROVIDERS: Admitting Provider Internal Medicine; Emergency Provider Physician Assistant; PCP Family Medicine Geriatric Medicine; Visit Provider Internal Medicine
DX: I21.4 Non-ST elevation (NSTEMI) myocardial infarction (principal); I50.22 Chronic systolic (congestive) heart failure; I11.0 Hypertensive heart disease with heart failure; E11.9 Type 2 diabetes mellitus without complications; D64.9 Anemia, unspecified; E78.5 Hyperlipidemia, unspecified; D75.839 Thrombocytosis, unspecified; M06.9 Rheumatoid arthritis, unspecified; I35.0 Nonrheumatic aortic (valve) stenosis; K21.9 Gastro-esophageal reflux disease without esophagitis; I25.10 Atherosclerotic heart disease of native coronary artery without angina pectoris; Z79.84 Long term (current) use of oral hypoglycemic drugs; Z79.899 Other long term (current) drug therapy; F32.A Depression, unspecified
CPT/HCPCS: 36415; 71045; 80053; 80061; 82962; 83036; 83735; 84100; 84484; 85025; 85610; 85730; 87426; 93005; 93306; 93454; 97802; 99152; 99153; 99251; 99284; J7030; A4216; C1769; C1894; G0463; J1940; J8610; Q9967